=== PATIENT | male | born 1940 | race Caucasian/White ===

== ENCOUNTER 2016-09-11 19:08 | Inpatient (IN) ==
[2016-09-11] MEDS ORDERED: Naloxone 0.4 MG/ML INJ IVP PRN (23:03)
[2016-09-11] MEDS ORDERED: *HR* Heparin 5,000 UNIT/ML VIAL IVP PRN ×3 (23:06→23:41)
[2016-09-11] MEDS ORDERED: D5% in Water 1,000 ML IVC PRN (23:13)
[2016-09-11] MEDS ORDERED: Dextrose Gel 15 GM PO PRN ×2 (23:13)
[2016-09-11] MEDS ORDERED: *HR* Dextrose 50 % in Water (Syg) 50 ML SYRINGE IVP PRN (23:13)
[2016-09-11] MEDS ORDERED: Heparin 25,000 UNIT/500 ML D5W 25,000 UNIT/500 ML MLS IVC SCH (23:15)
[2016-09-11] MEDS ORDERED: Nitroglycerin 25 MG/250 ML INFUS..BTL IVC SCH (23:15)
--- NOTE | 2016-09-11 23:20 | Internal Med History&Physical ---
Date of Encounter: 09/11/16 Time of Encounter: 23:18 Assessment and Plan (1) NSTEMI (non-ST elevated myocardial infarction) Current visit: Yes Status: Acute Patient with history of coronary artery disease. Will treat with heparin infusion and nitroglycerin infusion. Cardiology consultation for further management. (2) Diabetes mellitus Current visit: Yes Status: Chronic Hold metformin. Start sliding scale insulin. Qualifiers: Diabetes mellitus type: type 2 Diabetes mellitus complication status: with unspecified complications Diabetes mellitus intermodal customer service insulin use: without intermodal customer service use Qualified Code(s): E11.8 - Type 2 diabetes mellitus with unspecified complications (3) Accelerated hypertension Current visit: Yes Status: Acute Patient apparently missed his night time last night. Patient is on nitroglycerin infusion for chest pain and the BP is improving. (4) Hyperlipemia Current visit: Yes Status: Chronic check lipid panel. Continue statin. Qualifiers: Hyperlipidemia type: unspecified Qualified Code(s): E78.5 - Hyperlipidemia , unspecified Internal Medicine - H&P: HPI Chief complaint: Left Chest discomfort Admitted From: Hospital to Hospital Transfer Plans for Post Hospital Care: Home History of present illness: Transfer from [facility]. Mr. Chung is a 76 year old male With h/o coronary artery disease - status post stent placement in 2003, type 2 diabetes mellitus, hypertension, obstructive sleep apnea on CPAP, bilateral carotid artery stenosis (50-69%), adenomatous polyps of the colon, hyperlipidemia. He presented to the urgent care center at [facility], [place], with h/o left sided chest discomfort / pain (5/ 10, non radiating, not related to significant exertion) started this morning. He measured his blood pressure control, which was elevated at that time. He took nitroglycerin at home with improvement of blood pressure and the pain. He was evaluated at urgent care and was given further nitroglycerin. His initial troponin was negative but subsequent troponin was 0.76. He was started on nitroglycerin infusion and heparin infusion and sent to the [facility] for further management (details were discussed / transfer agreed by manager respiratory care Dr Calvin). At my evaluation, patient reports the chest pain is close to 0. He denies palpitations, shortness of breath, nausea, vomiting, sweating, abdominal pain, dysuria or hematuria. Labs at [facility]: Peak troponin 0.276, peak CK 96, sodium 137, potassium 4, glucose 155, BNP 20, creatinine 1.1, calcium 9.2, AST 57, ALP 62, total bilirubin 0.8, WBC 12.2, hemoglobin 14, hematocrit 40, platelets 261. Chest x-ray reported no acute abnormality. EKG personally reviewed by me shows sinus rhythm, heart rate 58, RBBB. Past Med Surg Social Fam HX - Past Medical History Medical history: coronary artery disease, diabetes - Social History Smoking Status: Former smoker Alcohol use: rarely Drug use: none - Additional Family History Additional family history: Denies family h/o CAD and diabetes Internal Medicine - H&P: Meds Aspirin Enteric Coated [Aspirin EC] 81 mg PO HS 09/11/16 [History] Atorvastatin Calcium 40 mg PO HS 09/11/16 [History] Bisacodyl [Woman's Laxative] 5 mg PO BID 09/11/16 [History] Carvedilol [Coreg] 6.25 mg PO BID 09/11/16 [History] Chlorthalidone 12.5 mg PO DAILY 09/11/16 [History] Cholecalciferol (Vitamin D3) [Vitamin D3] 400 unit PO BID 09/11/16 [History] Cyanocobalamin (Vitamin B-12) [Vitamin B12] 1,000 mcg PO DAILY 09/11/16 [History ] Flaxseed/Omega3,6,9/Fatty Acid [Flax Seed Oil 1,300 mg Softgel] 1 tab PO DAILY 09/11/16 [History] GlipiZIDE [Glipizide ER] 10 mg PO HS 09/11/16 [History] Isosorbide MONOnitrate (24 HR) [Imdur] 45 mg PO HS 09/11/16 [History] Losartan [Cozaar] 100 mg PO HS 09/11/16 [History] Metformin HCl [Glucophage] 1,000 mg PO BID 09/11/16 [History] Multivit-Min/FA/Lycopen/Lutein [Adults 50+ Multivitamin Tablet] 1 tab PO DAILY 09/11/16 [History] NIFEdipine [Adalat cc] 120 mg PO HS 09/11/16 [History] Nitroglycerin [Nitrostat] 0.4 mg SL Q5M PRN 09/11/16 [History] Allergies No Known Allergies Allergy (Verified 09/11/16 21:08) All Systems PM: A 10-system review of systems was performed and is negative for pertinent findings except as documented above in the HPI. - Constitutional Exam: General: Not in acute distress at the time of my evaluation HEENT: Oral mucosa is moist. No conjunctival palor or scleral icterus Neck: No obvious neck swellings Lungs: Clear to auscultation Cardiac: Regular rate and rhythm. No significant murmurs Abdomen: Soft, non tender. Bowel sounds present Genitourinary: No barrett catheter Neurological: Alert and oriented. No gross localizing deficits Psych: Not agrressive or agitated Extremities: no significant leg edema Skin: Mild leg swelling Internal Med - H&P Results - Labs Labs: Labs at [facility]: Peak troponin 0.276, peak CK 906, sodium 137, potassium 4, glucose 155, BNP 20, creatinine 1.1, calcium 9.2, AST 37, ALP 62, total bilirubin 0.8, WBC 12.2, hemoglobin 14, hematocrit 40, platelets 261. - EKG Data -: EKG Interpreted by Myself EKG shows normal: sinus rhythm Rate: bradycardia - EKG Data EKG comments: EKG personally reviewed by me shows sinus rhythm, heart rate 58, RBBB. 09/12/16 04:21 - Impressions Chest x-ray reported no acute abnormality. - VTE Reasons for not Prescribing Prophylaxis: Not indicated-Anticoagulated or INR therapeutic
[2016-09-12 00:57] LABS: INR 1.3; Prothrombin Time 13.6 Seconds (9.4-12.1)
[2016-09-12 01:12] LABS: Activated Partial Thrombo Time 109.8 Seconds (26.0-36.0)
[2016-09-12 05:27] LABS: Hemoglobin 13.2 g/dL (12.9-16.9); Mean Corpuscular HGB Conc 34.7 g/dL (31.6-35.5); Mean Corpuscular Volume 89.2 fL (83.0-100.0); Mean Platelet Volume 9.9 fL (9.4-12.4); Platelet Count 253 K/mcL (140-400); Red Blood Count 4.26 M/mcL (4.19-5.50); Red Cell Distribution Width 12.6 % (11.5-14.5)
[2016-09-12 05:28] LABS: BUN/Creatinine Ratio 20 (6-26); Blood Urea Nitrogen 17 mg/dL (8-26); Calcium 9.6 mg/dL (8.6-10.8); Carbon Dioxide 24 mEq/L (19-29); Chloride 104 mEq/L (98-109); Chol/HDL Ratio 3.1 (0-4.9); Cholesterol 110 mg/dL (< 200); Glucose 125 mg/dL (70-99); HDL Cholesterol 36 mg/dL (40-59); LDL Cholesterol,Calculated 59 mg/dL (0-99); Magnesium 1.5 mg/dL (1.6-2.6); Osmolality,Calculated 289 (280-300); Potassium 3.4 mEq/L (3.5-4.5); Sodium 138 mEq/L (136-145); Triglycerides 77 mg/dL (< 150); eGFR For African Americans > 60 (> 60); eGFR For Non-African Americans > 60 (> 60)
[2016-09-12] MEDS ORDERED: *HR* Morphine 2 MG/ML SYRINGE IVP ONE (05:55)
[2016-09-12] MEDS ORDERED: Nitroglycerin 25 MG/250 ML INFUS..BTL IVC SCH (05:56)
[2016-09-12] MEDS ORDERED: Nitroglycerin 0.4 MG TAB.SUBL SL PRN (05:57)
--- NOTE | 2016-09-12 08:26 | Electrocardiograph Report ---
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
--- NOTE | 2016-09-12 08:27 | Electrocardiograph Report ---
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
[2016-09-12] MEDS ORDERED: Magnesium Sulfate 2 GM in D5% in Water 100 ML IVPB ONE (08:58)
--- NOTE | 2016-09-12 09:02 | Internal Med Progress Note ---
<Bacilio Carmona - Last Filed: 09/12/16 10:11> Date of Encounter: 09/12/16 Time of Encounter: 09:02 - Assessment and plan (1) NSTEMI (non-ST elevated myocardial infarction) Current Visit: Yes Status: Acute Assessment and plan: According to patient, last time he had left heart cath with AMANDA 1 placement was 15 years ago, cardiology was consulted, continue heparin IV drip, aspirin, Coreg, statin, ARB, patient is currently on nitro drip for chest pain, echo has been ordered by cardiology, will follow their recommendations. (2) Hypomagnesemia Current Visit: Yes Status: Acute Assessment and plan: It has been replaced with IV magnesium, recheck in the morning. (3) Hypokalemia Current Visit: Yes Status: Acute Assessment and plan: Will replace it today and recheck in the morning. (4) Hypertension Current Visit: Yes Status: Acute Assessment and plan: Continue losartan and Coreg. Qualifiers: Qualified Code(s): I10 - Essential (primary) hypertension (5) Diabetes mellitus Current Visit: Yes Status: Chronic Assessment and plan: Continue sliding scale insulin with Accu-Cheks every 6 hours while patient is nothing by mouth. Check hemoglobin A1c in the morning. Qualifiers: Diabetes mellitus type: type 2 Diabetes mellitus complication status: with unspecified complications Diabetes mellitus extermination supervisor insulin use: without extermination supervisor use Qualified Code(s): E11.8 - Type 2 diabetes mellitus with unspecified complications (6) DVT prophylaxis Current Visit: Yes Status: Acute Assessment and plan: Heparin IV drip. - Subjective Interval history: Patient seen and examined. He states that last night patient had a chest pain 5 out of 10 but this morning is 2 out of 10, no shortness of breath or palpitation. - Constitutional Vitals: Temp Pulse Resp BP Pulse Ox 98.8 F 59 20 151/87 94 09/12/16 07:06 09/12/16 07:06 09/12/16 07:06 09/12/16 07:06 09/12/16 07:06 General appearance: Present: cooperative, A&O X 3, pleasant, no acute distress, answers questions appropriately - Respiratory Respiratory exam: Present: CTAB. Absent: rales, rhonchi, wheezes - Cardiovascular Cardiovascular exam: Present: RRR, +S1, +S2. Absent: clicks, gallop, rubs, systolic murmur - GI/Abdominal GI/Abdominal exam: Present: normal bowel sounds, soft. Absent: distended, firm , guarding, rebound, rigid, tenderness - Extremities Exam Extremities exam: Present: normal inspection, warm, radial pulses palpable and symetrical. Absent: calf tenderness, pedal edema, tenderness Internal Medicine: Result - Labs CBC & Chem 7: 09/12/16 04:53 09/12/16 04:53 Labs: Short CBC 09/12/16 Range/Units 04:53 WBC 7.6 (4.3-11.1) K/mcL Hgb 13.2 (12.9-16.9) g/dL Hct 38.0 (37.5-50.1) % Plt Count 253 (140-400) K/mcL BMP 09/12/16 04:53 Sodium 138 Potassium 3.4 L Chloride 104 Carbon Dioxide 24 BUN 17 Creatinine 0.84 Glucose 125 H Calcium 9.6 Cardiac Enzymes 09/12/16 09/12/16 Range/Units 00:00 04:53 Troponin I 0.90 H* 0.99 H* (0-0.03) ng/mL - ABG Interpretation ABG results: PT/INR, D-dimer PT 13.6 Seconds (9.4-12.1) H 09/12/16 00:00 - VTE Reasons for not Prescribing Prophylaxis: Not indicated-Anticoagulated or INR therapeutic Consult Discharge Plan - Plan [facility]errals[facility] Care Provider[facility] - <Ady Gauthier - Last Filed: 09/12/16 14:05> Date of Encounter: 09/12/16 - Assessment and plan (1) NSTEMI (non-ST elevated myocardial infarction) Current Visit: Yes Status: Acute (2) Hypomagnesemia Current Visit: Yes Status: Acute (3) Hypokalemia Current Visit: Yes Status: Acute (4) Hypertension Current Visit: Yes Status: Chronic Qualifiers: Hypertension type: essential hypertension Qualified Code(s): I10 - Essential (primary) hypertension (5) Diabetes mellitus Current Visit: Yes Status: Chronic Qualifiers: Diabetes mellitus type: type 2 Diabetes mellitus complication status: with circulatory complication Diabetes mellitus complication detail: with other circulatory complications Diabetes mellitus correction insulin use: without extermination supervisor use Qualified Code(s): E11.59 - Type 2 diabetes mellitus with other circulatory complications (6) CAD (coronary artery disease) Current Visit: Yes Status: Chronic Qualifiers: Coronary Disease-Associated Artery/Lesion type: [place] artery [place] vs. transplanted heart: [place] heart Associated angina: with unstable angina Qualified Code(s): I25.110 - Atherosclerotic heart disease of [place] coronary artery with unstable angina pectoris - Constitutional Vitals: Temp Pulse Resp BP Pulse Ox 99.5 F 59 17 133/67 94 09/12/16 12:01 09/12/16 12:01 09/12/16 12:01 09/12/16 12:01 09/12/16 07:06 Internal Medicine: Result - Labs CBC & Chem 7: 09/12/16 04:53 09/12/16 04:53 Labs: Short CBC 09/12/16 Range/Units 04:53 WBC 7.6 (4.3-11.1) K/mcL Hgb 13.2 (12.9-16.9) g/dL Hct 38.0 (37.5-50.1) % Plt Count 253 (140-400) K/mcL BMP 09/12/16 04:53 Sodium 138 Potassium 3.4 L Chloride 104 Carbon Dioxide 24 BUN 17 Creatinine 0.84 Glucose 125 H Calcium 9.6 Cardiac Enzymes 09/12/16 09/12/16 Range/Units 00:00 04:53 Troponin I 0.90 H* 0.99 H* (0-0.03) ng/mL - ABG Interpretation ABG results: PT/INR, D-dimer PT 13.6 Seconds (9.4-12.1) H 09/12/16 00:00 - Attending Attestation I examined this patient and my medical decision-making was reviewed with the Resident Physician on 09/12/16. I agree with the documented findings, disposition and treatment plan as described except to the extent set forth below. Mr. Chung is currently admitted for acute NSTEMI. He is moderate to high risk due to potential for worsening cardiac status. Mr. Chung is still on nitro drip. He has no dyspnea or nausea. Plan for cardiac cath today. Exam Alert. Comfortable Heart reg No wheeze I/P 1. NSTEMI Cardiac cath today Further diagnoses and plan as above.
[2016-09-12] MEDS: Cyanocobalamin (B-12) 1,000 MCG TABLET PO SCH (09:08)
[2016-09-12] MEDS: Cholecalciferol (D-3) 1,000 UNIT TABLET PO SCH (09:08)
[2016-09-12] MEDS: Multivit/Ca/Min/Fe/FA 1 TAB TABLET PO SCH (09:08)
[2016-09-12] MEDS: Insulin LISPRO 300 UNITS/3 ML VIAL SQ SCH ×3 (09:09→17:06)
--- NOTE | 2016-09-12 09:35 | Cardiology Consult Note ---
Date of Encounter: 09/12/16 Time of Encounter: 09:30 Assessment and Plan (1) NSTEMI (non-ST elevated myocardial infarction) Current Visit: Yes Status: Acute Per Cardiology: Peak troponin 0.99. Currently on aspirin, statin, beta rae, ARB, heparin drip, and nitro drip. Currently chest pain-free. Chest pain relieved with nitro drip and IV morphine. Will check echocardiogram and proceed with left heart catheterization. Patient and family agreeable and all questions answered. Further recs after catheterization and echo. Discussed and reviewed with Dr. Benitez Durán. CR rehab C/s placed. (2) CAD (coronary artery disease) Current Visit: Yes Status: Acute Per Cardiology: History of CAD with drug-eluting stent to circumflex at [place] in 2003. Qualifiers: Coronary Disease-Associated Artery/Lesion type: [place] artery [place] vs. transplanted heart: [place] heart Associated angina: with unstable angina Qualified Code(s): I25.110 - Atherosclerotic heart disease of [place] coronary artery with unstable angina pectoris (3) Accelerated hypertension Current Visit: Yes Status: Acute Per Cardiology: SBP 170's upon arrival, better controlled currently. Discussion w patient/family: The assessment and plan as outlined above was discussed with the patient and/or family members who expressed understanding and agreement. All questions were answered. Thank you for involving us in the care of your patient. Please call with any questions. History of Present Illness Consult date: 09/12/16 Requesting physician: Nando Ramirez Consult reason: NSTEMI Chief complaint: CP History of present illness: Mr. Chung is a 76 year old male with relevant past history of CAD-- stenting in 2003, diabetes mellitus type 2, hypertension, PAD with carotid artery disease. Last seen by Dr. Calvin June 2016. Cardiology consult for non-STEMI. Patient reports his normal state of health until Saturday. Reports developed midsternal chest burning and heaviness relieved with rest. He reports he took his first ever nitroglycerin pill with relief as well. Reports symptoms were intermittent throughout the day. Indicates symptoms returned and [facility] He indicates initial troponins were negative and plans were for a stress test. Patient does report increased fatigue the past week. Prior to this week very active and walks 2 miles per day with no chest pain, however does indicate some mild chest discomfort with climbing hills steps unchanged from baseline over the past few years. Reports had recurrent chest burning and pressure this morning finally relieved with nitroglycerin drip and IV morphine. Currently chest pain free. Reports no recent catheterization since stenting in 2003. Denies any recent infectious process. Denies any active bleeding or blood loss. Past Med Surg Social Fam HX - Past Medical History Attestation: Yes The following information was validated with the patient. Source: patient, old records reviewed, obtained from family Medical history: coronary artery disease, diabetes - Social History Smoking Status: Former smoker Alcohol use: rarely Drug use: none Medications and Allergies Aspirin Enteric Coated [Aspirin EC] 81 mg PO HS 09/11/16 [History] Carvedilol [Coreg] 6.25 mg PO BID 09/11/16 [History] Chlorthalidone 12.5 mg PO DAILY 09/11/16 [History] Cholecalciferol (Vitamin D3) [Vitamin D3] 400 unit PO BID 09/11/16 [History] Cyanocobalamin (Vitamin B-12) [Vitamin B12] 1,000 mcg PO DAILY 09/11/16 [History ] Flaxseed/Omega3,6,9/Fatty Acid [Flax Seed Oil 1,300 mg Softgel] 1 tab PO DAILY 09/11/16 [History] Isosorbide MONOnitrate (24 HR) [Imdur] 45 mg PO HS 09/11/16 [History] Metformin HCl [Glucophage] 1,000 mg PO BID 09/11/16 [History] Multivit-Min/FA/Lycopen/Lutein [Adults 50+ Multivitamin Tablet] 1 tab PO BID [History] NIFEdipine [Adalat cc] 120 mg PO DAILY 09/11/16 [History] Nitroglycerin [Nitrostat] 0.4 mg SL Q5M PRN 09/11/16 [History] Atorvastatin [Lipitor] 40 mg PO DAILY 09/12/16 [History] Losartan Potassium [Cozaar] 100 mg PO DAILY 09/12/16 [History] Magnesium Oxide [Magnesium] 400 mg PO DAILY 09/12/16 [History] Propylene Glycol/Peg 400 [Systane 0.3-0.4% Eye Drops] 15 drop OP QID PRN [History] glipiZIDE [Glipizide] 10 mg PO HS 09/12/16 [History] Allergies No Known Allergies Allergy (Verified 09/11/16 21:08) All Systems Review: A 10-system review of systems was performed and is negative for pertinent findings except as documented above in the HPI. - Constitutional Constitutional: fatigue - Cardiovascular Cardiovascular: as per HPI, chest pain at rest Physical Examination Vital Signs, Last 4 Hours Temp Pulse Resp BP Pulse Ox 09/12/16 07:06 98.8 F 59 20 151/87 94 General: Conversant, No Apparent Distress HEENT: Atraumatic, Normocephaly, Mucus Membranes Moist Neck: No JVD, Normal carotid pulses Cardiac: Reg Rate and Rhythm, Normal S1 and S2, No Murmur Lungs: Normal Breath Sounds, No Wheeze, Rales, Rhonchi Neuro: Alert and responsive, No focal deficits noted Abdomen: Soft, Non-Tender Skin: No rashes noted on visualized skin Musculoskeletal: No Chest Wall Tenderness Extremities: No Clubbing, No Cyanosis, No Edema, Normal Pulses Results 09/12/16 04:53 09/12/16 04:53 Lab Results 09/12/16 09/12/16 09/12/16 00:00 00:00 04:53 WBC 7.6 Hgb 13.2 Hct 38.0 Plt Count 253 INR 1.3 APTT 109.8 H Sodium Potassium Chloride Carbon Dioxide BUN Creatinine Glucose Calcium Magnesium Troponin I 0.90 H* Selected Entries 09/12/16 00:49 Blood Pressure 173/73 Laboratory Tests 09/12/16 09/12/16 09/12/16 00:00 00:00 04:53 INR 1.3 Troponin I 0.90 H* LDL Cholesterol, Calc 59 09/12/16 04:53 INR Troponin I 0.99 H* LDL Cholesterol, Calc Active Medications Aspirin (Aspirin Ec) 81 mg PO HS RADHA Stop: 03/14/17 21:01 Carvedilol (Coreg) 6.25 mg PO BID RADHA PRN Reason: Protocol Stop: 03/14/17 09:01 Last Admin: 09/12/16 09:08 Dose: 6.25 mg Cyanocobalamin (Vitamin B12) 1,000 mcg PO DAILY RADHA Stop: 03/14/17 09:01 Last Admin: 09/12/16 09:08 Dose: 1,000 mcg Dextrose/Water (Dextrose 50% (Syg)) 25 ml IVP AD PRN PRN Reason: Hypoglycemia Stop: 03/13/17 23:14 Glucagon (Glucagen) 1 mg IM ONCE PRN PRN Reason: Hypoglycemia Stop: 03/13/17 23:14 Glucose (Gluctose) 15 gm PO ONCE PRN PRN Reason: Hypoglycemia Stop: 03/13/17 23:14 Glucose (Gluctose) 30 gm PO ONCE PRN PRN Reason: Hypoglycemia Stop: 03/13/17 23:14 Heparin Sodium (Porcine) (Heparin) 2,000 unit IVP Q6H PRN; Protocol PRN Reason: SEE COMMENTS Stop: 03/13/17 23:07 Last Admin: 09/12/16 09:16 Dose: 2,000 unit Heparin Sodium (Porcine) (Heparin) 4,000 unit IVP Q6HR PRN; Protocol PRN Reason: SEE COMMENTS Stop: 03/13/17 23:07 Dextrose (Dextrose 5%) 1,000 mls @ 100 mls/hr IVC .Q10H PRN PRN Reason: HYPOGLYCEMIA Stop: 03/13/17 23:14 Heparin Sodium/Dextrose (Heparin 25,000 Unit/500 Ml D5w) 25,000 unit in 500 mls @ 22.08 mls/hr IVC .[id number] RADHA; 12 UNIT/KG/HR PRN Reason: Protocol Stop: 03/13/17 23:16 Last Titration: 09/12/16 09:14 Dose: 11.95 unit/kg/hr, 22 mls/hr Nitroglycerin (Nitroglycerin) 25 mg in 250 mls @ 3 mls/hr IVC .Q24H RADHA; 5 MCG/ MIN PRN Reason: Protocol Stop: 03/13/17 23:16 Last Admin: 09/12/16 06:06 Dose: 20 mcg/min, 12 mls/hr Magnesium Sulfate 2 gm/ (Dextrose) 104 mls @ 100 mls/hr IVPB ONCE ONE Stop: 09/12/16 10:00 Insulin Human Lispro (Humalog) 0 units SQ TIDAC RADHA PRN Reason: Protocol Stop: 03/14/17 07:31 Last Admin: 09/12/16 09:09 Dose: Not Given Insulin Human Lispro (Humalog) 0 units SQ HS RADHA PRN Reason: Protocol Stop: 03/14/17 21:01 Losartan Potassium (Cozaar) 100 mg PO HS RADHA PRN Reason: Protocol Stop: 03/14/17 21:01 Multivitamins/Calcium (Thera M Plus) 1 tab PO DAILY RADHA Stop: 03/14/17 09:01 Last Admin: 09/12/16 09:08 Dose: 1 tab Naloxone HCl (Narcan) 0.4 mg IVP Q2MIN PRN PRN Reason: Opioid Reversal Stop: 03/13/17 23:04 Nitroglycerin (Nitroglycerin) 0.4 mg SL Q5M PRN PRN Reason: Chest Pain Stop: 03/14/17 05:58 Simvastatin (Zocor) 40 mg PO HS RADHA Stop: 03/14/17 21:01 Vitamin D (Vitamin D) 1,000 unit PO DAILY RADHA Stop: 03/14/17 09:01 Last Admin: 09/12/16 09:08 Dose: 1,000 unit - Imaging and Cardiology Echo: pending Cardiac cath: pending - EKG Interpretation EKG results cardiology: personally reviewed, normal ECG, sinus rhythm, no diagnostic ischemia Consult Discharge Plan - Plan [facility]errals: [facility]Primary Care Provider] -
--- NOTE | 2016-09-12 11:44 | Pre-Sedation Evaluation ---
Pre-sedation evaluation - Pre-sedation checklist Date of procedure: 09/12/16 Procedure: left heart cath Recent Vitals: Last Vital Signs Temp 98.8 F 09/12/16 07:06 Pulse 59 09/12/16 07:06 Resp 20 09/12/16 07:06 BP 151/87 09/12/16 07:06 Pulse Ox 94 09/12/16 07:06 H&P (including ROS) documented in medical record: Yes Previous reaction to sedatives/anesthetics: No Dietary Status: NPO after Midnight Dentition: No loose teeth or bridges ASA Classification *see protocol: CLASS II-Mild systemic disease Plan of Care: Pt appropriate candidate for procedure/moderate/conscious sedation , Risks/benefits of procedure/sedation discussed w/ patient/family
[2016-09-12] MEDS ORDERED: *HR* Midazolam HCl 5 MG/5 ML VIAL IVP ONE (12:43)
[2016-09-12] MEDS ORDERED: *HR* FentaNYL (PF) 100 MCG/2 ML VIAL ONE (12:43)
[2016-09-12] MEDS ORDERED: 0.9 % Sodium Chloride 1,000 ML ONE ×2 (12:43→13:58)
--- NOTE | 2016-09-12 13:55 | Invasive Diagnostic Lab Proc ---
Name: Yfn Chung Date of Study: 09/12/2016 Date: 1940 Ht: 66.9in Medical Record#: [id number] Age: 76 Wt: 205.47lb Gender: Male BSA: 2.04 Order #: [id number] BMI: 32.29 Physicians Procedure Physician: Raheem Bhatti MD, [facility] Referring MD: Referring MD: Staff Name Position Time In Samantha Koo RT (R) Scrub 12:55 PM CarringtonMagdalena RT (R) Monitor 12:55 PM Mira Hoyos RN Scrub 12:55 PM Silke Vasques RN Budder 12:55 PM Indications Indication Non-Stemi Procedures Performed Procedure L HRT ARTERY/VENTRICLE ANGIO PRQ CARD AMANDA STENT W/ANGIO 1 VSL Pre-Procedure Checklist Informed consent is complete signed and on chart. H\\T\\P is on chart. ID band is on and ID verified with patient. Patient NPO for procedure The procedure was described for the patient and questions were answered. Blood Pressure: 151/87 ECG is on chart. Rhythm: NSR Plan of Care Patient will tolerate the procedure without complications. Adequate level of comfort will be maintained. Hemodynamics will remain stable Patient will recover from procedure without complications. Respiratory function will be maintained. Cardiac rhythm will remain stable. Patient temperature will be maintained. Patient and/or family have verbalized understanding of the procedure. Patient Education Chief Complaint/Reason for Test: Cardiac Cath Developmental Category: Geriatric (65+ years) Developmentally Appropriate for Age: Yes Learning Barriers: None Education Needs: Procedure Education Method: Verbal Information Taught: Cardiac Cath Educational Evaluation: Able to repeat information Intravenous Access Time IV Size Location DC'd Fluid/Drip Rate Units RN 20g 1 1/4" Patent On Arrival Lt Antecubital 0.9NaCl 25 ml/hr Mira Hoyos RN 20g 1 1/4" Patent On Arrival Rt Hand Allergies No Known Allergies Vital Signs Time BP (mmHg) HR (bpm) O2 Sat. RR (bpm) LOC 151 / 87 59 94 % 20 5 = Fully awake and oriented or at pre-proc level 12:55 PM / % 5 = Fully awake and oriented or at pre-proc level 12:55 PM / % 4 = Oriented but drowsy 01:10 PM / % 4 = Oriented but drowsy 01:25 PM / % 4 = Oriented but drowsy 01:15 PM 152 / 81 67 99 % 01:21 PM 168 / 82 62 100 % 13 01:27 PM 197 / 86 55 100 % 11 01:30 PM 180 / 94 57 100 % 15 01:36 PM 201 / 93 66 100 % 12 01:40 PM 188 / 93 62 99 % 12 12:50 PM 79 / 45 65 99 % 17 12:56 PM 225 / 101 63 99 % 01:00 PM 157 / 132 69 100 % 22 01:05 PM 162 / 80 61 96 % 16 01:10 PM 160 / 78 66 100 % 17 Procedural Medications Time Medication Dose Units Method Given By 12:55 PM Oxygen 2 L/min nasal cannula Mira Hoyos RN 12:56 PM Versed 2 mg Intravenous Silke Vasques RN 12:56 PM Fentanyl 50 mcg Intravenous Silke Vasques RN 01:08 PM Lidocaine 2% 0.5 ml Subcutaneous Raheem Bhatti MD, FAC 01:09 PM Heparin 4000 units Nitroglycerin 200 mcg Verapamil 2.5 mg Intraarterial Raheem Bhatti MD, FACC 01:35 PM Heparin 3000 units Intravenous Silke Vasques RN 01:36 PM Hydralazine 10 mg Intravenous Silke Vasques RN 01:38 PM Nitroglycerin 200 mcg Intracoronary Rhaeem Bhatti MD 01:42 PM Plavix 75 mg Orally Silke Vasques RN ASA Classification: CLASS II- Mild systemic disease (i.e. well-controlled diabetes, hypertension, asthma, cigarette smoking) Manuel Score Preprocedure Postprocedure Activity 2- Moves 4 extremities sustained head lift Activity 2- Moves 4 extremities sustained head lift Circulation 2- SBP +/= 20 points of pre-anesthetic level Circulation 2- SBP +/= 20 points of pre-anesthetic level Consciousness 2- Awake and alert oriented x 3 Consciousness 2- Awake and alert oriented x 3 O2 Saturation 2- Able to maintain O2 satruation of 92% on room air O2 Saturation 2- Able to maintain O2 satruation of 92% on room air Respiratory 2- Able to deep breathe and cough well Respiratory 2- Able to deep breathe and cough well Total Score 10 Total Score 10 Contrast Agent: Isovue Diagnostic Contrast: 173 ml Total Contrast: 173 ml Fluoro Dose: 776 mGy Activated Clotting Time Time Seconds to Clot 01:32 PM 400 01:35 PM 214 Procedure Log Time Note Enter By 12:31 PM Pt arrived to chemical lab technician 2 at 12:31 ejohnson 12:47 PM CathStat 12:50 PM Vitals capture started with the following parameters, Patient=Adult, Interval=5 min, Initial Pgyjyaaf=567 mmHg, Deflation Rate=5 mmHg, Cuff placed on Right Arm 12:50 PM Pressure channel 1 zeroed. 12:50 PM HR=65 bpm, NIBP=79/45 mmhg, SpO2=99 %, Resp=17 B/min 12:52 PM Physician arrived 12:52 ejohnson 12:52 PM Meet and greet completed ejohnson 12:52 PM Sign in performed according to hospital policy. ejohnson 12:52 PM Procedure start 12:52 ejohnson 12:52 PM Case Delayed No ejohnson 12:52 PM Patient charges- Angio tray pack, Navilyst 3mm J, Pulse Oximetry and ACIST tubing and transducer ejohnson 12:54 PM Recorded ECG: HR=64 Condition=Condition 1 12:54 PM NIBP STAT measurement started. 12:54 PM Hair removed from procedure site in procedure lab using clippers. Bilateral groin prepped with Chloraprep by Samantha Koo RT (R), safety strap applied then patient was draped. Skin intact. tsites 12:55 PM Samantha Koo RT (R) Position: Scrub Time in: 12:55 tsites 12:55 PM Magdalena Shultz RT (R) Position: Monitor Time in: 12:55 tsites 12:55 PM Mira Hoyos RN Position: scrub Time in: 12:55 tsites 12:55 PM Silke Vasques RN Position: sheep farmer Time in: 12:55 tsites 12:55 PM Time: 12:55 Oxygen on at 2 L/min per nasal cannula by Mira Hoyos RN tsites 12:55 PM Time: 12:55 Patient comfortable and pain free: Yes tsites 12:55 PM Time: 12:55LOC: 5 = Fully awake and oriented or at pre-proc level tsites 12:55 PM Clinical Presentation: Non-STEMI tsites 12:56 PM HR=63 bpm, DIIB=519/101 mmhg, SpO2=99.0 % 12:56 PM Time: 12:56 Versed 2 mg Intravenous Given by Silke Vasques RN tsites 12:57 PM Time: 12:56 Fentanyl 50 mcg Intravenous Given by Silke Vasques RN tsites 01:00 PM HR=69 bpm, LBAE=058/132 mmhg, NgX7=736.0 %, Resp=22 B/min, Comment=nsr 01:05 PM HR=61 bpm, QZEH=207/80 mmhg, SpO2=96 %, Resp=16 B/min 01:08 PM Time out performed according to hospital policy tsites 01:08 PM Time: 13:08 0.5 ml Lidocaine 2% to right radial Subcutaneous Given by Raheem Bhatti MD, [facility] tsites 01:09 PM Access obtained by percutaneous puncture. 6Fr 10cm Terumo Glidesheath sheath placed in right Radial artery. [id number] tsites 01:09 PM Time: 13:09 Patient given 4,000 units Heparin, 200 mcg Nitroglycerin, and 2.5 mg Verapamil Intraarterial by Raheem Bhatti MD, [facility] tsites 01:10 PM Time: 12:55 Patient comfortable and pain free: Yes tsites 01:10 PM HR=66 bpm, GJZR=603/78 mmhg, NjX0=673.0 %, Resp=17 B/min 01:10 PM Time: 12:55LOC: 4 = Oriented but drowsy tsites 01:11 PM 5Fr TIG catheter inserted over the wire [facility] tsites 01:11 PM 0.035 260cm Navilyst 3mmJ wire [id number] tsites 01:11 PM Pressure channel 1 zeroed. 01:11 PM Recorded Pressure: LV, HR=61, Condition=Condition 1 (Left Ventricle) LV 125/12/12 01:12 PM Catheter selectively placed in left ventricle tsites 01:12 PM Bolus angiogram of left Ventricle complete: 10 ml/sec for a total of 30 mls tsites 01:12 PM Recorded Pressure: LV, Ao, HR=68, Condition=Condition 1 (Left Ventricle) LV 145/8/14, (Aorta) Ao 127/71/94 01:12 PM Recorded Pressure: Ao, HR=62, Condition=Condition 1 (Aorta) Ao 134/84/108 01:12 PM RCA angiography performed in multiple views. tsites 01:13 PM wire reinserted catheter removed tsites 01:14 PM 5Fr FL3.5 catheter inserted over the wire [id number] tsites 01:15 PM LCA angiography performed in multiple views. tsites 01:15 PM Recorded Pressure: Ao, HR=67, Condition=Condition 1 (Aorta) Ao 128/68/94 01:15 PM HR=67 bpm, KVHM=131/81 mmhg, SpO2=99.0 % 01:18 PM Coronary Dominance: right tsites 01:19 PM Lesion found in Mid RCA. Pre Stenosis: 60 Pre VIBHA Flow: tsites 01:19 PM Lesion found in 1st RPLV. Pre Stenosis: 90 Pre VIBHA Flow: tsites 01:20 PM Lesion found in Right PDA. Pre Stenosis: 60 Pre VIBHA Flow: tsites 01:20 PM Lesion found in LMCA. Pre Stenosis: 30 Pre VIBHA Flow: tsites 01:20 PM Lesion found in Mid LAD. Pre Stenosis: 50 Pre VIBHA Flow: tsites 01:20 PM Left Main Coronary Artery with 40% stenosis tsites 01:20 PM Mid/Distal Left Anterior Descending Coronary Artery and diagonal branches with 50% stenosis. If graft is supplying this area, 0 % stenosis tsites 01:21 PM Right Coronary, Right Posterior Descending Arteries with Right Posterolateral and Acute Marginal branches with 90 % stenosis. If graft is supplying this area, 0 % stenosis tsites 01:21 PM wire reinserted catheter removed tsites 01:21 PM PCI Status Urgent tsites 01:21 PM HR=62 bpm, KROM=394/82 mmhg, WwC5=681.0 %, Resp=13 B/min, Comment=nsr 01:22 PM Lesion found in Proximal LAD. Pre Stenosis: 80 Pre VIBHA Flow: tsites 01:23 PM PCI Indication: PCI for high risk Non-STEMI or unstable angina tsites 01:23 PM PCI lesion in Mid LAD. tsites 01:23 PM 6Fr RBL 3.5 Convey guide catheter was used to cannulate the PCI vessel successfully. reused? No tsites :24 PM .014 [place] 190cm guide wire across target lesion- successful. reused? No tsites :25 PM Time: 13:10 Patient comfortable and pain free: Yes tsites :25 PM Time: 13:10LOC: 4 = Oriented but drowsy tsites 01:27 PM ACT drawn tsites 01:27 PM Inflation device was opened. tsites 01:27 PM HR=55 bpm, YDEE=205/86 mmhg, JfQ2=371.0 %, Resp=11 B/min 01:30 PM 2.5 mm x 15 mm Emerge Monorail balloon across target lesion- successful. reused? No tsites 01:30 PM Balloon inflated @ 10 shlomo for 17 seconds tsites 01:30 PM HR=57 bpm, NPRA=939/94 mmhg, XeY0=243.0 %, Resp=15 B/min 01:32 PM Balloon catheter removed intact. tsites 01:32 PM At 13:32 the ACT was 400 seconds. tsites 01:32 PM 2.75mm x 16mm Synergy drug-eluting stent across target lesion- successful Lot #[id number] tsites 01:32 PM ACT drawn tsites 01:35 PM Stent deployed @ 12 shlomo for 38 seconds tsites 01:35 PM At 13:35 the ACT was 214 seconds. tsites 01:35 PM Time: 13:35 Heparin 3000 units Intravenous Given by Silke Vasques RN tsites 01:36 PM HR=66 bpm, XMXF=501/93 mmhg, SlK4=077.0 %, Resp=12 B/min 01:36 PM Time: 13:36 Hydralazine 10 mg Intravenous Given by Silke Vasques RN tsites 01:38 PM 2.75 mm x 12mm NC Emerge balloon across target lesion- successful. reused? No tsites 01:38 PM Balloon inflated @ 12 shlomo for seconds tsites 01:38 PM Time: 13:38 Nitroglycerin 200 mcg Intracoronary Given by Raheem Bhatti MD tsites 01:40 PM Proximal Left Anterior Descending Coronary Artery with 80% stenosis. If graft is supplying this territory, 0 % stenosis. tsites 01:40 PM HR=62 bpm, ARTD=567/93 mmhg, SpO2=99 %, Resp=12 B/min 01:40 PM Time: 13:25LOC: 4 = Oriented but drowsy tsites 01:40 PM Time: 13:25 Patient comfortable and pain free: Yes tsites 01:41 PM Balloon catheter removed intact. tsites 01:41 PM Guide wire removed intact. tsites 01:41 PM Guide catheter removed intact. tsites 01:42 PM Time: 13:42 Plavix 75 mg Orally Given by Silke Vasques RN tsites 01:43 PM Procedure completed at 13:43 tsites 01:43 PM Sign out completed: Radiation Dose 776 mGy Fluoro Time: 8.6 Isovue 370 - 500ml contrast 173 ml given by Raheem Bhatti MD, [facility]. Complications: NoneCardiac Rehab Consult needed: YesConfirmed administered medications: Yes tsites 01:43 PM Isovue 370 - 500ml,1 Bottle(s) used. tsites 01:43 PM Arterial sheath pulled, Vasc Band closure device used and was Successful S/N. tsites 01:43 PM 10 ml air in Vasc Band. tsites 01:43 PM Post ECG NSR tsites 01:44 PM Post Blood Pressure 188/93 tsites 01:44 PM 13:44 Post Pulses Rt Radial 2+ tsites 01:44 PM Information taught Cardiac Cath, PCI, and Vasc Band tsites 01:44 PM Education needs Procedure, Plan of Care, and Responsibilities of Patient in Care tsites 01:44 PM Learning barriers :None tsites 01:44 PM Education Methods Verbal tsites 01:44 PM Education evaluation Able to repeat information tsites 01:44 PM Site status No bleeding/hematoma - Rt Wrist as reported by Samantha Koo RT (R) at 13:44 tsites 01:45 PM Plavix, Effient or Brilinta given Yes tsites 01:45 PM Delay to floor No tsites 01:45 PM Patient out of room: 13:45 tsites 01:45 PM Family placed in consult room. tsites 01:49 PM Report given to jenny CORDERO Pt taken to E Room #19. 13:48 tsites Complications Complication None Hemodynamics Pressures Site Systolic/A Wave Diastolic/V Wave Mean LV 125 12 12 LV 145 8 14 AO 127 71 94 AO 134 84 108 AO 128 68 94 Post Procedure Information Blood Pressure: 188/93 mmHg Rhythm: NSR Post procedural instructions were given Closure Device Time Device Success/Fail 09/12/2016 1:45:00 PM Mechanical Compression Successful Site Checks Time Location Status Staff Sheath In? Note 01:44 PM Rt Wrist No bleeding/hematoma Samantha Koo RT (R) Pulses Time Site Pre-Procedure Post-Procedure Note Bilateral DP \\T\\ PT 2+ Bilateral radial 2+ 1:44:00 PM Rt Radial 2+ Updated by Magdalena Shultz RT (R) on 09/12/2016 1:49:13 PM Magdalena Shultz RT electronically signed on 09/12/2016 1:49:37 PM with status of Final
[2016-09-12] MEDS ORDERED: Verapamil 5 MG/2 ML VIAL ONE (13:57)
[2016-09-12] MEDS ORDERED: Heparin 1,000 UNITS/500 mL NS 500 ML ONE (13:58)
[2016-09-12] MEDS ORDERED: *HR* Heparin 10,000 UNIT/10 ML VIAL ONE (13:58)
[2016-09-12] MEDS ORDERED: Nitroglycerin 1,000 MCG/10 ML VIAL IV ONE (13:58)
--- NOTE | 2016-09-12 19:52 | Invasive Diagnostic Lab ---
Name: Yfn Chung Date of Study: 09/12/2016 Date: 1940 Ht: 169.9 cm /66.9 in Medical Record#: [id number] Age: 76 Wt: 93.2 kg / 205.47 lb Account/Order#: [id number] Gender: Male BSA: 2.04 Order #: [id number] Fluoro Dose: 776 mGy BMI: 32.29 Procedure Physician: Raheem Bhatti MD, [facility] Referring MD: Referring MD: Procedures Performed: LEFT HEART CATH Stent w/ PTCA Single Major Vessel Indications: Non-Stemi Impressions: There is severe one vessel coronary artery disease. The left ventricle is normal and has normal contractility EF 60% Patient had successful PTCA/Drug-Eluting Stent placement in the mid LAD. Residual small vessel disease Recommendations: Optimal medical therapy of patient's disease. Aggressive risk factor modification. Patient being referred for cardiac rehab. History/Risk Factors: sleep apnea Diabetes Hypertension Dyslipidemia Previous PCI Date: 05/02/2003 Procedure Access obtained in the right Radial artery by percutaneous puncture Patient had successful PTCA/Drug-Eluting Stent placement in the proximal LAD. Complications: None Contrast: Isovue 173ml Closure Device: Mechanical Compression Hemodynamics: Pressures Site Systolic/ A Wave Diastolic/ V Wave End Diastolic/ Mean HR LV 125 12 12 61 LV 145 8 14 69 AO 127 71 94 67 AO 134 84 108 62 AO 128 68 94 67 LV Ventriculography Ejection Method: LV Gram Ejection Fraction: 60% Wall Motion: SOL Anterobasal Normal Anterolateral Normal Apical: Normal Inferoapical Normal Inferobasal Normal Coronary Dominance: right Lesion Findings/Interventions * Left Main Coronary Artery There is a 30-40% stenosis in the LMCA. * Left Anterior Descending There is a 16 mm long, 80% stenosis in the mid LAD (just after diagonal/septal). The lesion has a VIBHA flow of 3 and has no thrombus present. An intervention was performed on the Proximal LAD with a final stenosis of 0%. There were no lesion complications. The final VIBHA flow was 3. There is a 50% stenosis in the mid LAD. There is minimal disease in the proximal LAD * Circumflex The Circumflex has a mid 50% stenosis The 1st Marginal is angiographically free of significant disease * Right Coronary Artery The RPLV is small in size with 80% stenosis. There is a 60% stenosis in the Mid RCA. There is a 60% stenosis in the Right PDA. Interventional Device(s) Vessel Segment Type Name Diameter (mm) Length (mm) Proximal LAD Balloon NC Emerge 2.75 12 Proximal LAD Balloon Emerge Monorail 2.5 15 Proximal LAD Drug Eluting Stent Synergy 2.75 16 Updated by Magdalena Shultz, RT (R) on 09/12/2016 1:48:26 PM Raheem Bhatti MD, FACC electronically signed on 09/12/2016 7:48:22 PM with status of Final
[2016-09-12] MEDS ORDERED: Aspirin Enteric Coated 81 MG Tablet PO SCH (21:00)
[2016-09-12] MEDS ORDERED: Insulin LISPRO 300 UNITS/3 ML VIAL SQ SCH (21:00)
[2016-09-13 06:15] LABS: Basophils % 0.4 %; Eosinophils # 0.2 K/mcL (0.0-0.6); Eosinophils % 2.7 %; Hematocrit 36.3 % (37.5-50.1); Hemoglobin 12.6 g/dL (12.9-16.9); Immature Granulocytes % 0.4 % (0-4); Lymphocytes # 1.4 K/mcL (0.6-4.6); Lymphocytes % 18.6 %; Mean Corpuscular HGB Conc 34.7 g/dL (31.6-35.5); Mean Corpuscular Hemoglobin 31.1 pg (28.0-33.3); Mean Corpuscular Volume 89.6 fL (83.0-100.0); Mean Platelet Volume 10.1 fL (9.4-12.4); Monocytes # 0.9 K/mcL (0.0-1.3); Monocytes % 12.4 %; Neutrophils # 4.8 K/mcL (1.6-8.9); Platelet Count 228 K/mcL (140-400); Red Blood Count 4.05 M/mcL (4.19-5.50); Red Cell Distribution Width 12.7 % (11.5-14.5); Segmented Neutrophils % 65.5 %
[2016-09-13 06:26] LABS: BUN/Creatinine Ratio 17 (6-26); Blood Urea Nitrogen 14 mg/dL (8-26); Calcium 9.1 mg/dL (8.6-10.8); Carbon Dioxide 26 mEq/L (19-29); Chloride 104 mEq/L (98-109); Glucose 143 mg/dL (70-99); Magnesium 1.5 mg/dL (1.6-2.6); Osmolality,Calculated 287 (280-300); Potassium 3.7 mEq/L (3.5-4.5); Sodium 137 mEq/L (136-145); eGFR For African Americans > 60 (> 60); eGFR For Non-African Americans > 60 (> 60)
[2016-09-13] MEDS: Cyanocobalamin (B-12) 1,000 MCG TABLET PO SCH (08:11)
[2016-09-13] MEDS: Cholecalciferol (D-3) 1,000 UNIT TABLET PO SCH (08:11)
[2016-09-13] MEDS: Insulin LISPRO 300 UNITS/3 ML VIAL SQ SCH (08:11)
[2016-09-13] MEDS: Multivit/Ca/Min/Fe/FA 1 TAB TABLET PO SCH (08:11)
--- NOTE | 2016-09-13 08:25 | Cardiology Progress Note ---
Date of Encounter: 09/13/16 Time of Encounter: 08:30 Assessment and Plan (1) NSTEMI (non-ST elevated myocardial infarction) Current Visit: Yes Status: Acute Per Cardiology: Peak troponin 0.99. On aspirin, statin-- will switch to atorvastain and increase to 80mg, beta rae, ARB. Received Plavix yesterday-- will start Plavix. Underwent left heart catheterization which showed left main 30-40%, mid LAD 80% status post PTCA with drug-eluting stent, LAD 50%, circumflex mid 50%, RPLV 80% (small size), mid RCA 60%, and right PDA 60%. Hold Metformin today and resume tomorrow. Currently chest pain-free. Rec provide Rx for SL NTG at [place]. Echo pending. We'll sign off, re-consult as needed, follow-up scheduled. All questions answered. (2) CAD (coronary artery disease) Current Visit: Yes Status: Chronic Per Cardiology: History of CAD with drug-eluting stent to circumflex at [place] in 2003. Qualifiers: Coronary Disease-Associated Artery/Lesion type: [place] artery [place] vs. transplanted heart: [place] heart Associated angina: without angina Qualified Code(s): I25.10 - Atherosclerotic heart disease of [place] coronary artery without angina pectoris (3) Accelerated hypertension Current Visit: Yes Status: Chronic Per Cardiology: SBP 170's upon arrival, better controlled currently. SBP 140's-150's. HR 50's - 60's. Will resume CCB. Discussion w patient/family: The assessment and plan as outlined above was discussed with the patient who expressed understanding and agreement. All questions were answered. Thank you for involving us in the care of your patient. Please call with any questions. Subjective Principal diagnosis: NSTEMI Interval history: Patient denies any chest pain, short of breath, palpitations. Denies any concerns regarding his right wrist site. Objective Vital Signs, Last 4 Hours Temp Pulse Resp BP Pulse Ox 09/13/16 08:09 62 09/13/16 06:59 97.5 F L 54 16 154/75 98 09/13/16 04:53 98.3 F 52 16 142/59 97 General: Conversant, No Apparent Distress HEENT: Atraumatic, Normocephaly, Mucus Membranes Moist Cardiac: Reg Rate and Rhythm, Normal S1 and S2, No Murmur Lungs: Normal Breath Sounds, No Wheeze, Rales, Rhonchi Neuro: Alert and responsive, No focal deficits noted Skin: No rashes noted on visualized skin, Other (Right wrist site dry and intact , no hematoma, no bleeding, right radial pulse 2+ palpable) Musculoskeletal: No Chest Wall Tenderness Extremities: No Clubbing, No Cyanosis, No Edema, Normal Pulses Results 09/13/16 05:00 09/13/16 05:00 Lab Results Laboratory Tests 09/13/16 09/13/16 05:00 05:00 Creatinine 0.84 Est GFR (Non-Af Amer) > 60 Hemoglobin A1c 6.0 H Magnesium 1.5 L Active Medications Aspirin (Aspirin Ec) 81 mg PO HS RADHA Stop: 03/14/17 21:01 Last Admin: 09/12/16 21:41 Dose: 81 mg Carvedilol (Coreg) 6.25 mg PO BID RADHA PRN Reason: Protocol Stop: 03/14/17 09:01 Last Admin: 09/13/16 08:11 Dose: 6.25 mg Cyanocobalamin (Vitamin B12) 1,000 mcg PO DAILY RADHA Stop: 03/14/17 09:01 Last Admin: 09/13/16 08:11 Dose: 1,000 mcg Dextrose/Water (Dextrose 50% (Syg)) 25 ml IVP AD PRN PRN Reason: Hypoglycemia Stop: 03/13/17 23:14 Glucagon (Glucagen) 1 mg IM ONCE PRN PRN Reason: Hypoglycemia Stop: 03/13/17 23:14 Glucose (Gluctose) 15 gm PO ONCE PRN PRN Reason: Hypoglycemia Stop: 03/13/17 23:14 Glucose (Gluctose) 30 gm PO ONCE PRN PRN Reason: Hypoglycemia Stop: 03/13/17 23:14 Heparin Sodium (Porcine) (Heparin) 2,000 unit IVP Q6H PRN; Protocol PRN Reason: SEE COMMENTS Stop: 03/13/17 23:07 Last Admin: 09/12/16 09:16 Dose: 2,000 unit Heparin Sodium (Porcine) (Heparin) 4,000 unit IVP Q6HR PRN; Protocol PRN Reason: SEE COMMENTS Stop: 03/13/17 23:07 Dextrose (Dextrose 5%) 1,000 mls @ 100 mls/hr IVC .Q10H PRN PRN Reason: HYPOGLYCEMIA Stop: 03/13/17 23:14 Insulin Human Lispro (Humalog) 0 units SQ TIDAC RADHA PRN Reason: Protocol Stop: 03/14/17 07:31 Last Admin: 09/13/16 08:11 Dose: 2 units Insulin Human Lispro (Humalog) 0 units SQ HS RADHA PRN Reason: Protocol Stop: 03/14/17 21:01 Last Admin: 09/12/16 21:40 Dose: Not Given Losartan Potassium (Cozaar) 100 mg PO HS RADHA PRN Reason: Protocol Stop: 03/14/17 21:01 Last Admin: 09/12/16 21:41 Dose: 100 mg Multivitamins/Calcium (Thera M Plus) 1 tab PO DAILY RADHA Stop: 03/14/17 09:01 Last Admin: 09/13/16 08:11 Dose: 1 tab Naloxone HCl (Narcan) 0.4 mg IVP Q2MIN PRN PRN Reason: Opioid Reversal Stop: 03/13/17 23:04 Nitroglycerin (Nitroglycerin) 0.4 mg SL Q5M PRN PRN Reason: Chest Pain Stop: 03/14/17 05:58 Simvastatin (Zocor) 40 mg PO HS RADHA Stop: 03/14/17 21:01 Last Admin: 09/12/16 21:41 Dose: 40 mg Vitamin D (Vitamin D) 1,000 unit PO DAILY RADHA Stop: 03/14/17 09:01 Last Admin: 09/13/16 08:11 Dose: 1,000 unit - Imaging and Cardiology Echo: pending Cardiac cath: report reviewed - EKG Interpretation EKG results cardiology: other (Sinus rhythm in the 60s on telemetry) - VTE Reasons for not Prescribing Prophylaxis: Not indicated-Anticoagulated or INR therapeutic Consult Discharge Plan - Plan [facility]errals: [facility]Primary Care Provider[facility] -
[2016-09-13] MEDS ORDERED: amLODIPine 5 MG TABLET PO SCH (09:00)
--- NOTE | 2016-09-13 10:27 | Discharge Summary ---
Date of Encounter: 09/13/16 Time of Encounter: 10:26 - Discharge Diagnosis (1) NSTEMI (non-ST elevated myocardial infarction) Priority: Primary Status: Acute (2) Hypomagnesemia Priority: Secondary Status: Acute (3) Hypokalemia Priority: Secondary Status: Acute (4) Hypertension Priority: Secondary Status: Chronic Qualifiers: Hypertension type: essential hypertension Qualified Code(s): I10 - Essential (primary) hypertension (5) Diabetes mellitus Priority: Secondary Status: Chronic Qualifiers: Diabetes mellitus type: type 2 Diabetes mellitus complication status: with circulatory complication Diabetes mellitus complication detail: with other circulatory complications Diabetes mellitus chcf insulin use: without chcf use Qualified Code(s): E11.59 - Type 2 diabetes mellitus with other circulatory complications (6) DVT prophylaxis Priority: Secondary Status: Acute - Discharge Medications Prescriptions: Atorvastatin [Lipitor] 80 mg PO HS #30 tablet Clopidogrel [Plavix] 75 mg PO DAILY #30 tablet Home Medications: Aspirin Enteric Coated [Aspirin EC] 81 mg PO HS 09/11/16 [History] Carvedilol [Coreg] 6.25 mg PO BID 09/11/16 [History] Chlorthalidone 12.5 mg PO DAILY 09/11/16 [History] Cholecalciferol (Vitamin D3) [Vitamin D3] 400 unit PO BID 09/11/16 [History] Cyanocobalamin (Vitamin B-12) [Vitamin B12] 1,000 mcg PO DAILY 09/11/16 [History ] Flaxseed/Omega3,6,9/Fatty Acid [Flax Seed Oil 1,300 mg Softgel] 1 tab PO DAILY 09/11/16 [History] Isosorbide MONOnitrate (24 HR) [Imdur] 45 mg PO HS 09/11/16 [History] Metformin HCl [Glucophage] 1,000 mg PO BID 09/11/16 [History] Multivit-Min/FA/Lycopen/Lutein [Adults 50+ Multivitamin Tablet] 1 tab PO BID [History] NIFEdipine [Adalat cc] 120 mg PO DAILY 09/11/16 [History] Nitroglycerin [Nitrostat] 0.4 mg SL Q5M PRN 09/11/16 [History] Losartan Potassium [Cozaar] 100 mg PO DAILY 09/12/16 [History] Magnesium Oxide [Magnesium] 400 mg PO DAILY 09/12/16 [History] Propylene Glycol/Peg 400 [Systane 0.3-0.4% Eye Drops] 15 drop OP QID PRN [History] glipiZIDE [Glipizide] 10 mg PO HS 09/12/16 [History] Atorvastatin [Lipitor] 80 mg PO HS #30 tablet 09/13/16 [Rx] Clopidogrel [Plavix] 75 mg PO DAILY #30 tablet 09/13/16 [Rx] Allergies/Adverse Reactions: Allergies No Known Allergies Allergy (Verified 09/11/16 21:08) Procedures/tests Complete & Pending: Procedures Performed prior 72 hours Category Date Time Status CL Cardiac Catheterization [CL] Routine Show Operations Supervisor 09/12/16 09:33 Completed ECG 12 lead ECG [ECG] Routine Y 09/12/16 01:18 Completed ECG 12 lead ECG [ECG] Stat Y 09/11/16 23:03 Ordered EKG [ECG 12 lead ECG] [ECG] Stat Y 09/12/16 05:57 Completed EV echocardiogram Routine Y 09/12/16 09:34 Completed Date of admission: 09/11/16 21:00 Primary care physician: [facility] Consults: 09/12/16 00:48 Consult to Cardiology [CONS] Routine Comment: Consulting Provider: Lisandra York Reason for Consult: NSTEMI Call Completed: No 09/12/16 09:33 Consult to Cardiac Rehabilitation-Phase1 [CONS] Routine Comment: Reason for Consult: NSTEMI Call Completed: No Discharging clinician: Bacilio Carmona Anticipated date of discharge: 09/13/16 - Patient Status Disposition: Home, Self-Care Condition: Good Functional capacity at discharge: uses cane/walker (fall precaution) Overall status at discharge: patient is progressing back to baseline - Discharge Instructions Follow Up With: [facility],PCP [Primary Care Provider] - (F/u in a week for hospital d/c f/u and DM II. 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 Chung is a 76 year old male with hx of dm II and CAD who presented to the ER with cc of chest pain, in the ER he was found to have elevated troponin, he was admitted for NSTEMI, heparin drip was started and nitro drip was started for active chest pain, cardio consulted, pt was taken to the [facility] yesterday, which showed severe one vessel CAD, AMANDA was placed in mid LAD, cardio has adjusted her medications, pt is stable to be d/c today with close f/u with his PCP in [facility] and cadiologist. - Time Spent with Patient Total time spent providing and/or coordinating discharge services: - Constitutional Vitals: Temp Pulse Resp BP Pulse Ox 97.5 F L 56 16 156/66 98 09/13/16 06:59 09/13/16 09:48 09/13/16 06:59 09/13/16 09:48 09/13/16 06:59 General appearance: Present: cooperative, A&O X 3, pleasant, no acute distress, answers questions appropriately - Head Head exam: Present: atraumatic, normocephalic - Eye Eye exam: Present: PERRL, conjuntiva pink, sclera anicteric Pupils: Present: PERRL - Neck Neck exam general surgery: Present: supple, trachea midline. Absent: lymphadenopathy - Respiratory Respiratory exam: Present: CTAB. Absent: accessory muscle use, rales, rhonchi, wheezes - Cardiovascular Cardiovascular exam: Present: RRR, +S1, +S2. Absent: diastolic murmur, gallop, rubs, systolic murmur - GI/Abdominal GI/Abdominal exam: Present: normal bowel sounds, soft, no peritoneal signs. Absent: distended, tenderness - Extremities Exam Extremities exam: Present: warm, radial pulses palpable and symetrical. Absent : calf tenderness, cyanotic, pedal edema - Neurological Exam Neurological exam: Present: CN II-XII intact, oriented X3, no focal deficits. Absent: pronater drift, facial droop, speech deficit - Skin Skin exam: Present: dry, intact - VTE Reasons for not Prescribing Prophylaxis: Not indicated-Anticoagulated or INR therapeutic
[2016-09-13] MEDS ORDERED: Magnesium Oxide 400 MG TABLET PO SCH (10:30)
[2016-09-13 12:14] VITALS: BP 148/78
[2016-09-15] MEDS ORDERED: NIFEdipine XL (24 HR) 60 MG TAB.ER.24 PO SCH (09:00)
== END 2016-09-13 14:05 | disposition home or self-care (01) | DRG 247 ==
LOC: 2NENU 21:00 → SUATTDRO 21:00
PROVIDERS: ADMIT Nurse Practitioner Acute Care; ATTEND Internal Medicine

== ENCOUNTER 2017-05-20 10:11 | Inpatient (IN) ==
--- NOTE | 2017-05-20 10:20 | Emergency Department Note ---
Disposition Clinical Impression: Elevated troponin, Chest pain Disposition: Admitted As Inpatient Condition: Good Forms: ED Satisfaction Letter Time of Disposition: 11:57 Chest Pain HPI - General Chief Complaint: ED Chest Pain Stated Complaint: ed chest pain Time Seen by Provider: 05/20/17 10:16 Source: patient Mode of arrival: ambulatory Limitations: no limitations Vital Signs Reviewed: Yes Nursing Notes Reviewed: Yes - History of Present Illness HPI Narrative: 76-year-old male presents emergency room for chest pain. Patient was sent over from the [place] clinic. Patient states he started getting pain in his chest substernal region around 2:30 in the morning. He has a history of 2 stents. Last stent was placed in the summer of 2016. He states he had some pain in his left arm. He felt sweaty. No shortness of breath. States he has been having problems with diarrhea and intermittent constipation since last week as well. He also admits he was diagnosed with a urinary tract infection last and is on an antibiotic but cannot tell me the name of it. He denies any vomiting. He rates his pain as 0 out of 10. He did receive 1 nitroglycerin and aspirin at the [facility] clinic. The nitroglycerin relieved his chest pain. His troponin was elevated at the CT clinic at 0.11 - Related Data Home Medications Medication Instructions Recorded Confirmed Aspirin Enteric Coated [Aspirin EC] 81 mg PO DAILY 09/11/16 05/20/17 Chlorthalidone 12.5 mg PO DAILY 09/11/16 05/20/17 Isosorbide MONOnitrate (24 HR) 45 mg PO DAILY 09/11/16 05/20/17 [Imdur] Metformin HCl [Glucophage] 1,000 mg PO BID 09/11/16 05/20/17 Multivit-Min/FA/Lycopen/Lutein 1 tab PO BID 09/11/16 05/20/17 [Adults 50+ Multivitamin Tablet] NIFEdipine [Adalat cc] 120 mg PO DAILY 09/11/16 05/20/17 Nitroglycerin [Nitrostat] 0.4 mg SL Q5M PRN 09/11/16 05/20/17 Losartan Potassium [Cozaar] 100 mg PO DAILY 09/12/16 05/20/17 glipiZIDE [Glipizide] 10 mg PO HS 09/12/16 05/20/17 Tamsulosin [Flomax] 0.4 mg PO HS 12/11/16 05/20/17 Clomipramine HCl 100 mg PO HS 02/06/17 05/20/17 Magnesium Oxide [Magnesium] 400 mg PO HS 02/06/17 05/20/17 Metoprolol Succinate [Toprol Xl] 25 mg PO DAILY 02/06/17 05/20/17 Ranolazine [Ranexa] 500 mg PO BID 02/06/17 05/20/17 Acetaminophen [Non-Aspirin] 650 mg PO Q6H PRN 05/20/17 05/20/17 Amoxicillin/Clavulanate [Augmentin] 875 mg PO BID 05/20/17 05/20/17 Docusate Sodium [Dok] 200 mg PO DAILY PRN 05/20/17 05/20/17 Lactobacillus Acidophilus 1 mg PO BID 05/20/17 05/20/17 [Acidophilus Probiotic] Nitrofurantoin Monohyd/M-Cryst 100 mg PO BID 05/20/17 05/20/17 [Macrobid 100 mg Capsule] Ranitidine HCl [Acid Network/Telecom Engineer] 150 mg PO BID 05/20/17 05/20/17 Sennosides [Senokot] 8.6 mg PO BID PRN 05/20/17 05/20/17 Previous Rx's Medication Instructions Recorded Atorvastatin [Lipitor] 80 mg PO HS #30 tablet 09/13/16 Clopidogrel [Plavix] 75 mg PO DAILY #30 tablet 09/13/16 Allergies Allergy/AdvReac Type Severity Reaction Status Date / Time No Known Allergies Allergy Verified 09/11/16 21:08 All systems ED: reviewed and negative except as stated. Constitutional: Reports: chills Eyes: Reports: as per HPI ENT ED: Reports: as per HPI Cardiovascular: Reports: as per HPI, chest pain. Denies: orthopnea, edema, syncope, paroxysmal nocturnal dyspnea Respiratory: Reports: as per HPI Gastrointestinal: Reports: diarrhea, constipation Genitourinary: Reports: as per HPI Musculoskeletal: Reports: as per HPI Integumentary: Reports: as per HPI Neurological: Reports: as per HPI Endocrine: Reports: as per HPI Hematological/Lymphatic: Reports: as per HPI Allergic/Immunologic: Reports: as per HPI Chest Pain PMH - Past Medical History Medical history: Reports: diabetes, myocardial infarction - Social History Smoking Status: Smoker, status unknown Alcohol use: Reports: rarely Drug use: Reports: none Physical Exam - General Limitations: no limitations General appearance: alert - Head Head exam: atraumatic, normocephalic - Eye Eye exam: Present: normal appearance - ENT ENT exam: normal exam - Neck Neck exam: Present: normal inspection - Chest Chest inspection: Present: normal inspection - Respiratory Respiratory exam: Present: normal lung sounds bilaterally. Absent: respiratory distress - Cardiovascular Cardiovascular exam: Present: regular rate, normal rhythm - Abdominal Exam Abdominal exam: Present: soft, Non-Tender, normal bowel sounds. Absent: tenderness - Extremities Exam Extremities exam: Present: normal inspection - Expanded Lower Extremity Exam Hip/Pelvis exam: Present: normal inspection - Neurological Exam Neurological exam: Present: alert, oriented X3 - Psychiatric Psychiatric exam: Present: normal affect, normal mood - Skin Skin exam: Present: warm, dry, intact Course Vital Signs Temperature 99.3 F 05/20/17 10:13 Pulse Rate 74 05/20/17 10:13 Respiratory Rate 18 05/20/17 10:13 Blood Pressure 121/59 05/20/17 10:13 O2 Sat by Pulse Oximetry 96 05/20/17 10:13 Temperature 99.3 F 05/20/17 10:13 Pulse Rate 74 05/20/17 10:13 Respiratory Rate 18 05/20/17 10:13 Blood Pressure 121/59 05/20/17 10:13 O2 Sat by Pulse Oximetry 98 05/20/17 10:22 Oxygen Delivery Oxygen Delivery Room Air Chest Pain - MDM Narrative Medical decision making narrative: Patient's troponin did come back elevated here as well. EKG was unremarkable. I spoke with the hospitalist. We will admit the patient and start him on heparin drip for ACS protocol. - Medical Records Medical records reviewed: Yes I reviewed the patient's medical records. - Lab Data Lab results reviewed: Yes I reviewed the patient's lab results. Result diagrams: 05/20/17 10:45 05/20/17 10:45 Lab Results 05/20/17 05/20/17 05/20/17 Range/Units 10:45 10:45 10:45 WBC 13.1 H (4.3-11.1) K/mcL RBC 3.58 L (4.19-5.50) M/mcL Hgb 11.3 L (12.9-16.9) g/dL Hct 32.5 L (37.5-50.1) % MCV 90.8 (83.0-100.0) fL MCH 31.6 (28.0-33.3) pg MCHC 34.8 (31.6-35.5) g/dL RDW 13.0 (11.5-14.5) % Plt Count 290 (140-400) K/mcL MPV 9.6 (9.4-12.4) fL Immature Gran % 0.6 (0-4) % Seg Neutrophils % 78.0 % Lymphocytes % 11.5 % Monocytes % 9.1 % Eosinophils % 0.5 % Basophils % 0.3 % Neutrophils # 10.2 H (1.6-8.9) K/mcL Lymphocytes # 1.5 (0.6-4.6) K/mcL Monocytes # 1.2 (0.0-1.3) K/mcL Eosinophils # 0.1 (0.0-0.6) K/mcL Basophils # 0.0 (0.0-0.2) K/mcL Sodium 133 L (136-145) mEq/L Potassium 3.5 (3.5-5.1) mEq/L Chloride 99 (98-107) mEq/L Carbon Dioxide 25 (23-29) mEq/L BUN 14 (8-23) mg/dL Creatinine 0.72 (0.70-1.30) mg/dL Est GFR ( Amer) > 60 (> 60) Est GFR (Non-Af Amer) > 60 (> 60) BUN/Creatinine Ratio 19 (6-26) Glucose 172 H (70-105) mg/dL Calculated Osmolality 281 (280-300) Calcium 8.9 (8.6-10.3) mg/dL Troponin I 0.11 H* (< 0.04) ng/mL - Radiology Data Radiology results reviewed: Yes I reviewed the patient's radiology results. - EKG Data EKG attestation: Yes I reviewed and interpreted this EKG. EKG results narrative: EKG shows a rate of 74. No sinus rhythm. Left axis deviation. [place] interval 142. QRS 114. QTc 474. No acute findings on the EKG is compared to previous. Critical Care Time Critical Care Time: Yes Total Critical Care Time: 30 Attestation: Total critical care time 30 minutes spent medical management of ACS protocol with elevated troponin.
[2017-05-20 11:04] LABS: Basophils % 0.3 %; Eosinophils # 0.1 K/mcL (0.0-0.6); Eosinophils % 0.5 %; Hematocrit 32.5 % (37.5-50.1); Hemoglobin 11.3 g/dL (12.9-16.9); Immature Granulocytes % 0.6 % (0-4); Lymphocytes # 1.5 K/mcL (0.6-4.6); Lymphocytes % 11.5 %; Mean Corpuscular HGB Conc 34.8 g/dL (31.6-35.5); Mean Corpuscular Hemoglobin 31.6 pg (28.0-33.3); Mean Corpuscular Volume 90.8 fL (83.0-100.0); Mean Platelet Volume 9.6 fL (9.4-12.4); Monocytes # 1.2 K/mcL (0.0-1.3); Monocytes % 9.1 %; Neutrophils # 10.2 K/mcL (1.6-8.9); Platelet Count 290 K/mcL (140-400); Red Blood Count 3.58 M/mcL (4.19-5.50)
[2017-05-20 11:10] LABS: Calcium 8.9 mg/dL (8.6-10.3); Carbon Dioxide 25 mEq/L (23-29); Chloride 99 mEq/L (98-107); Potassium 3.5 mEq/L (3.5-5.1); Sodium 133 mEq/L (136-145)
[2017-05-20 11:15] LABS: BUN/Creatinine Ratio 19 (6-26); Blood Urea Nitrogen 14 mg/dL (8-23); Glucose 172 mg/dL (70-105); Osmolality,Calculated 281 (280-300); eGFR For African Americans > 60 (> 60); eGFR For Non-African Americans > 60 (> 60)
[2017-05-20] MEDS ORDERED: Heparin 25,000 UNIT/500 ML D5W 25,000 UNIT/500 ML BAG IVC SCH (12:00)
[2017-05-20 13:24] LABS: INR 1.3
[2017-05-20 13:27] LABS: Activated Partial Thrombo Time 24.4 Seconds (26.0-36.0)
--- NOTE | 2017-05-20 13:28 | Electrocardiograph Report ---
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
[2017-05-20] MEDS ORDERED: Naloxone 0.4 MG/ML INJ IVP PRN (14:00)
[2017-05-20] MEDS ORDERED: *HR* HYDROcodone/Acet 5/325 mg TABLET PO PRN (14:00)
[2017-05-20] MEDS ORDERED: Nitroglycerin 0.4 MG TAB.SUBL SL PRN (14:11)
[2017-05-20] MEDS ORDERED: Acetaminophen 325 MG TABLET PO PRN (14:11)
[2017-05-20] MEDS ORDERED: Ondansetron 4 MG/2 ML VIAL IVP PRN (14:14)
[2017-05-20] MEDS ORDERED: Aspirin Enteric Coated 325 MG Tablet PO SCH (14:30)
--- NOTE | 2017-05-20 14:44 | Internal Med History&Physical ---
<Ancelmo Tsang - Last Filed: 05/20/17 19:22> Date of Encounter: 05/20/17 Time of Encounter: 13:00 Assessment and Plan (1) Chest pain Current visit: Yes Status: Acute Acute chest pain that began at 2 a.m. this morning in left chest w/radiation to left shoulder blade and presents as intermittent cramping which builds in pressure. Also reports dizziness Pt. has hx of previous MIs and had stent placed at [facility] in 2004 and stent placed at [place] in 2017. Sx at rest. No alleviating or aggravating factors. Initial troponin 0.11. Heparin drip started in ED. 325 aspirin. 80 mg Lipitor now. Nitro PRN. Continuous telemetry. Echocardiogram. Pt. reports nitroglycerin helped relieve his symptoms. Dizziness w/standing so orthostatic BPs and VS ordered. Cardiology consult ordered and discussed with Dr. Costa and I appreciate the consult. Pt. discussed w/Dr. York who agrees w/plan of care. Pt. is high risk for cardiac event and further morbidity based on current symptoms of chest pain at rest, history of previous MIs requiring stent placement; risk factors of CAD, HLD, HTN , diabetes. Inpatient. Qualifiers: Chest pain type: other chest pain Qualified Code(s): R07.89 - Other chest pain; R07.8 - Other chest pain (2) Elevated troponin Current visit: Yes Status: Acute Acutely elevated troponin of 0.11 on admission. Previous troponin elevation in was 0.99 when last stent placed. Heparin drip started in ED. Trend x2. Cardiology consulted. (3) UTI (urinary tract infection) Current visit: Yes Status: Acute Acute UTI dx on at Urgent Care. Pt. reports he was placed on by mouth amoxicillin and Bactrim and took dosing through this morning. Patient reports urine is still dark with foul odor. U/A w/reflex micro and culture ordered. WBC 13.1 on admission. IVPB ceftriaxone 2,000 mg daily ordered for infection coverage. Will adjust based on U/A results. Qualifiers: Urinary tract infection type: site unspecified Hematuria presence: without hematuria Qualified Code(s): N39.0 - Urinary tract infection, site not specified (4) Diarrhea Current visit: Yes Status: Acute Acute and uncontrolled diarrhea for the past 2 days. Pt. placed on PO abx on for UTI dx. C. diff infection panel ordered. Monitor I&O. Qualifiers: Diarrhea type: unspecified type Qualified Code(s): R19.7 - Diarrhea, unspecified (5) Anemia Current visit: Yes Status: Chronic Hx of chronic anemia. Hgb 11.3 and Hct 32.5 which is slight drop from 08/2016. Pt. denies unusual bleeding. Monitor H/H in a.m. labs. Qualifiers: Anemia type: unspecified type Qualified Code(s): D64.9 - Anemia, unspecified (6) HLD (hyperlipidemia) Current visit: Yes Status: Chronic Hx of chronic HLD. Lipid panel in a.m. labs. Continue pts. Lipitor. Qualifiers: Hyperlipidemia type: pure hypercholesterolemia Qualified Code(s): E78.00 - Pure hypercholesterolemia, unspecified; E78.0 - Pure hypercholesterolemia (7) HTN (hypertension) Current visit: Yes Status: Chronic Hx of chronic HTN. Monitor pt. and VS. continue patient's metoprolol, chlorthalidone, Ranexa, nifedipine, Cozaar, and Imdur. Qualifiers: Hypertension type: essential hypertension Qualified Code(s): I10 - Essential (primary) hypertension (8) CAD (coronary artery disease) Current visit: Yes Status: Chronic Hx of chronic CAD with history of previous MIs and stent placement 2 in 1999 at [facility] in 2017 at [facility]. Continue patient's aspirin therapy, Imdur, Cozaar, metoprolol, chlorthalidone, Ranexa, felodipine, Plavix, Lipitor, and nitrofurantoin Qualifiers: Coronary Disease-Associated Artery/Lesion type: crow artery [place] vs. transplanted heart: crow heart Associated angina: without angina Qualified Code(s): I25.10 - Atherosclerotic heart disease of crow coronary artery without angina pectoris (9) Diabetes mellitus Current visit: Yes Status: Chronic Hx of diabetes controlled by oral anti-hyperglycemic medications. Will hold oral medications and administer low-dose correction insulin sliding scale with hypoglycemic protocol. BG checks before meals at bedtime. A1c in a.m. labs. Qualifiers: Diabetes mellitus type: type 2 Diabetes mellitus complication status: with circulatory complication Diabetes mellitus complication detail: with other circulatory complications Diabetes mellitus manager long term care insulin use: without senior care use Qualified Code(s): E11.59 - Type 2 diabetes mellitus with other circulatory complications (10) DVT prophylaxis Current visit: Yes Status: Acute Pt. placed on heparin drip d/t elevated troponin of 0.11. Monitor patient for signs of bleeding. Internal Medicine - H&P: HPI Chief complaint: Chest pain Admitted From: Emergency Dept Plans for Post Hospital Care: Home History of present illness: Mr. Chung is a 76 year old male with medical hx of diabetes controlled with oral anti-glycemic medications, previous myocardial infarction, CAD, GERD, HLD, HTN, and [facility] chief complaint of chest pain that began at 2 AM this morning and he describes as left-sided chest pain with radiation to left shoulder. Patient states pain came on without exertion and had no alleviating or relieving factors. Patient describes as intermittent cramping feeling that the pressure. Patient reports stents 2 with first in 2003 at [facility] and second in 2017 at [facility]. Patient reports being diaphoretic but denies shortness of breath, nausea, vomiting. Patient states he was diagnosed with UTI 4 days ago and placed on amoxicillin and Bactrim. Patient is on fifth day of antibiotics and reports uncontrollable diarrhea every hour for the past 2 days. Patient reports dizziness with standing, diarrhea, and chest pain but denies fever, chills, nausea, vomiting, shortness of breath, cough, changes in vision, headache, palpitations, abdominal pain, weakness, pre-syncope, or syncope. Past Med Surg Social Fam HX - Past Medical History Source: patient, old records reviewed, obtained from family Medical history: coronary artery disease, diabetes, GERD, hyperlipidemia, hypertension, myocardial infarction - Social History Smoking Status: Smoker, status unknown Smokeless Tobacco Status: No Alcohol use: rarely Drug use: none Current living situation: Home, With Family Activity Level: Independent ambulation Recent Out of Country Travel Within the Last 8 Weeks: No Exposure or Possible Exposure to Illness During Travel: No - Family History Mother Adopted: No Race: Family Member Ethnicity: Non- Living Status: Still Living Hx Family Cardiac Disorders: Yes (CVA) Hx Family Respiratory Disorders: No Hx Family Cancer: No Hx Family GI Disorders: No Hx Family Endocrine Disorder: No Hx Family Neuromuscular Disorders: No Hx Family Neurologic Disorders: Yes (Dementia) Hx Family HEENT Disorders: No Hx Family Autoimmune Disorders: No Father Race: Family Member Ethnicity: Non- Living Status: Age at : 87 Cause of : CAD Hx Family Cardiac Disorders: Yes (CAD) Sister Race: Family Member Ethnicity: Non- Living Status: Still Living Hx Family Cardiac Disorders: Yes (CAD) Internal Medicine - H&P: Meds Aspirin Enteric Coated [Aspirin EC] 81 mg PO DAILY 09/11/16 [History] Chlorthalidone 12.5 mg PO DAILY 09/11/16 [History] Isosorbide MONOnitrate (24 HR) [Imdur] 45 mg PO DAILY 09/11/16 [History] Metformin HCl [Glucophage] 1,000 mg PO BID 09/11/16 [History] Multivit-Min/FA/Lycopen/Lutein [Adults 50+ Multivitamin Tablet] 1 tab PO BID [History] NIFEdipine [Adalat cc] 120 mg PO DAILY 09/11/16 [History] Nitroglycerin [Nitrostat] 0.4 mg SL Q5M PRN 09/11/16 [History] Losartan Potassium [Cozaar] 100 mg PO DAILY 09/12/16 [History] glipiZIDE [Glipizide] 10 mg PO HS 09/12/16 [History] Atorvastatin [Lipitor] 80 mg PO HS #30 tablet 09/13/16 [Rx] Clopidogrel [Plavix] 75 mg PO DAILY #30 tablet 09/13/16 [Rx] Tamsulosin [Flomax] 0.4 mg PO HS 12/11/16 [History] Clomipramine HCl 100 mg PO HS 02/06/17 [History] Magnesium Oxide [Magnesium] 400 mg PO HS 02/06/17 [History] Metoprolol Succinate [Toprol Xl] 25 mg PO DAILY 02/06/17 [History] Ranolazine [Ranexa] 500 mg PO BID 02/06/17 [History] Acetaminophen [Non-Aspirin] 650 mg PO Q6H PRN 05/20/17 [History] Amoxicillin/Clavulanate [Augmentin] 875 mg PO BID 05/20/17 [History] Docusate Sodium [Dok] 200 mg PO DAILY PRN 05/20/17 [History] Lactobacillus Acidophilus [Acidophilus Probiotic] 1 mg PO BID 05/20/17 [History] Nitrofurantoin Monohyd/M-Cryst [Macrobid 100 mg Capsule] 100 mg PO BID 05/20/17 [History] Ranitidine HCl [Acid Patient Admitting Clerk] 150 mg PO BID 05/20/17 [History] Sennosides [Senokot] 8.6 mg PO BID PRN 05/20/17 [History] 3 Allergy/AdvReac Type Severity Reaction Status Date / Time No Known Allergies Allergy Verified 09/11/16 21:08 All Systems PM: A 10-system review of systems was performed and is negative for pertinent findings except as documented above in the HPI. - Constitutional Constitutional: as per HPI, excessive sweating (With chest pain this morning ), no chills, no fever(s), no night sweats - EENT Eyes: no change in vision, no discharge, no pain, no photophobia Ears: no ear discharge, no ear pain, no tinnitus Nose, mouth and throat: no dysphagia, no nasal discharge, no neck pain, no sore throat - Breasts Breasts: as per HPI - Cardiovascular Cardiovascular ROS IM: as per HPI, chest pain, diaphoresis - Respiratory Respiratory: no cough, no dyspnea, no wheezing, no excessive phlegm production - Gastrointestinal Gastrointestinal: as per HPI, no abdominal pain, no diarrhea (Uncontrolled every hour for the past 2 days), no hematemesis, no hematochezia, no melena, no nausea, no vomiting - Genitourinary Genitourinary ROS male: as per HPI - Musculoskeletal Musculoskeletal ROS IM: no numbness, no tingling - Integumentary Integumentary IM: no rash, no unusual bruising - Neurological Neurological ROS: as per HPI, dizziness (w/standing), no confusion, no convulsions, no focal weakness, no numbness, no tingling, no tremor(s) - Psychiatric Psychiatric: as per HPI - Endocrine Endocrine IM: as per HPI - Hematologic/Lymphatic Hematologic/Lymphatic: no easy bruising - Allergic/Immunologic Allergic/Immunologic: as per HPI - Constitutional Vitals: Temp Pulse Resp BP Pulse Ox 99.3 F 62 14 119/58 98 05/20/17 10:13 05/20/17 13:59 05/20/17 13:59 05/20/17 13:59 05/20/17 12:30 General appearance: Present: cooperative, A&O X 3, pleasant, no acute distress, obese, answers questions appropriately - Head Head exam: Present: atraumatic, normocephalic - Eye Eye exam: Present: PERRL, conjuntiva pink, sclera anicteric Pupils: Present: PERRL - ENT ENT exam: Present: normal exam - Neck Neck exam general surgery: Present: normal inspection, supple, trachea midline. Absent: lymphadenopathy - Respiratory Respiratory exam: Present: CTAB. Absent: accessory muscle use, rales, rhonchi, wheezes - Cardiovascular Cardiovascular exam: Present: RRR, +S1, +S2. Absent: diastolic murmur, gallop, rubs, systolic murmur - GI/Abdominal GI/Abdominal exam: Present: normal bowel sounds, soft, no peritoneal signs. Absent: distended, tenderness - Rectal Rectal exam: Present: deferred - Additional comments: exam deferred. - Extremities Exam Extremities exam: Present: warm, radial pulses palpable and symmetrical. Absent : calf tenderness, cyanotic, pedal edema - Back Exam Back exam: Present: normal inspection - Neurological Exam Neurological exam: Present: CN II-XII intact, oriented X3, no focal deficits. Absent: pronater drift, facial droop, speech deficit - Psychiatric Psychiatric exam: Present: normal affect, normal mood - Skin Skin exam: Present: dry, intact Internal Med - H&P Results - Labs CBC & Chem 7: 05/20/17 10:45 05/20/17 10:45 - EKG Data EKG shows normal: sinus rhythm - EKG Data Prior EKG available for review: yes EKG comments: 05/20/17 14:49 EKG dated 05/20/17 08:49 shows sinus rhythm with premature atrial complexes and possible left atrial enlargement. EKG dated 05/20/17 shows sinus rhythm with occasional supraventricular premature complexes and moderate intraventricular conduction delay with prolonged QT interval. - Impressions Impressions Chest X-Ray 05/20/17 11:16 IMPRESSION: Prominence of the right pulmonary hilum by either represent normal underlying vascular structures or perhaps lymph node enlargement. The lungs are otherwise clear. D/ / Abrahan Reed MD / Abrahan Reed MD Interpreting Provider: Abrahan Reed MD <Michel York - Last Filed: 05/20/17 20:14> Date of Encounter: 05/20/17 Internal Medicine - H&P: HPI History of present illness: Mr. Chung is a 76 year old male All Systems PM: A 10-system review of systems was performed and is negative for pertinent findings except as documented above in the HPI. - Constitutional Vitals: Temp Pulse Resp BP Pulse Ox 99.3 F 66 18 117/65 92 05/20/17 19:49 05/20/17 19:49 05/20/17 19:49 05/20/17 14:55 05/20/17 19:49 Internal Med - H&P Results - Labs CBC & Chem 7: 05/20/17 10:45 05/20/17 10:45 - Attending Attestation I have personally performed a face to face evaluation on this patient. I have reviewed and agree with the care plan. History and Exam by me shows: patient presented to the hospital with chest pain. Troponin is 0.11. On exam he is in no acute distress. Heart is regular, lungs are clear. EKG shows nonspecifiST changes. mild QT prolongatio. assessment: non-ST elevation [place]. Plan : Aspirin, beta rae, nitates, heparin infusion, consult cardiology. Michel York MD
[2017-05-20] MEDS ORDERED: D5% in Water 1,000 ML IVC PRN (14:55)
[2017-05-20] MEDS ORDERED: Dextrose Gel 15 GM/37.5 ML TUBE PO PRN ×2 (14:55)
[2017-05-20] MEDS ORDERED: *HR* Dextrose 50 % in Water (Syg) 50 ML SYRINGE IVP PRN (14:55)
[2017-05-20] MEDS ORDERED: Aspirin Enteric Coated 325 MG Tablet PO ONE (15:07)
[2017-05-20] MEDS ORDERED: cefTRIAXone 2,000 MG in Water for inj. (sterile) 20 ML 20 ML IVP SCH (16:00)
[2017-05-20] MEDS: 0.9 % Sodium Chloride 1,000 ML IVC SCH (17:29)
[2017-05-20 18:37] LABS: Bilirubin,Urine Negative (Negative); Blood,Urine Negative (Negative); Clarity,Urine Clear (Clear); Color,Urine Dark Yellow (Yellow); Glucose,Urine (UA) 250 mg/dL (Normal); Ketones,Urine Negative (Negative); Leukocyte Esterase,Urine Negative (Negative); Nitrite,Urine Negative (Negative); PH,Urine 6.5 pH Units (5.0-8.0); Protein,Urine 30 mg/dL (Neg-Trace); Urobilinogen,Urine Normal (Normal)
[2017-05-20 18:39] LABS: Bacteria,Urine None Seen per hpf (None-Few); Hyaline Casts,Urine None Seen per lpf (None-Few); Squamous Epithelial Cell,Urine Moderate per lpf (None-Few)
[2017-05-20] MEDS: Insulin LISPRO 300 UNITS/3 ML VIAL SQ SCH (19:01)
[2017-05-20] MEDS ORDERED: Magnesium Oxide 400 MG TABLET PO SCH (21:00)
[2017-05-20] MEDS ORDERED: Insulin LISPRO 300 UNITS/3 ML VIAL SQ SCH (21:00)
[2017-05-20] MEDS: Lactobacillus 1 EACH CAP.SPRINK PO SCH (21:06)
[2017-05-20] MEDS: Ranolazine 500 MG TAB.ER.12H PO SCH (21:07)
[2017-05-20] MEDS: Multivit/Ca/Min/Fe/FA 1 TAB TABLET PO SCH (21:07)
[2017-05-20] MEDS: Famotidine 20 MG TABLET PO SCH (21:07)
[2017-05-20] MEDS ORDERED: *HR* Heparin 5,000 UNIT/ML VIAL IVP PRN ×2 (22:07)
[2017-05-20] MEDS ORDERED: *HR* Heparin 5,000 UNIT/ML VIAL IVP ONE (22:07)
[2017-05-20] MEDS: Heparin 25,000 UNIT/500 ML D5W 25,000 UNIT/500 ML BAG IVC SCH ×2 (22:22→22:34)
[2017-05-20 22:44] LABS: Hematocrit 29.7 % (37.5-50.1); Hemoglobin 10.3 g/dL (12.9-16.9); Mean Corpuscular HGB Conc 34.7 g/dL (31.6-35.5); Mean Corpuscular Hemoglobin 31.5 pg (28.0-33.3); Mean Corpuscular Volume 90.8 fL (83.0-100.0); Mean Platelet Volume 9.6 fL (9.4-12.4); Platelet Count 260 K/mcL (140-400); Red Blood Count 3.27 M/mcL (4.19-5.50)
[2017-05-20 22:49] LABS: INR 1.4
[2017-05-20 23:06] LABS: Activated Partial Thrombo Time 46.4 Seconds (26.0-36.0)
[2017-05-21] MEDS: 0.9 % Sodium Chloride 1,000 ML IVC SCH (05:00)
[2017-05-21 05:23] LABS: Basophils % 0.4 %; Eosinophils # 0.3 K/mcL (0.0-0.6); Eosinophils % 2.8 %; Hematocrit 29.4 % (37.5-50.1); Hemoglobin 10.2 g/dL (12.9-16.9); Immature Granulocytes % 0.7 % (0-4); Lymphocytes # 2.2 K/mcL (0.6-4.6); Lymphocytes % 21.9 %; Mean Corpuscular HGB Conc 34.7 g/dL (31.6-35.5); Mean Corpuscular Hemoglobin 31.5 pg (28.0-33.3); Mean Corpuscular Volume 90.7 fL (83.0-100.0); Mean Platelet Volume 9.6 fL (9.4-12.4); Monocytes % 10.2 %; Neutrophils # 6.6 K/mcL (1.6-8.9); Platelet Count 264 K/mcL (140-400); Red Blood Count 3.24 M/mcL (4.19-5.50)
[2017-05-21 05:26] LABS: Hemoglobin A1C 5.8 %
[2017-05-21 06:02] LABS: Alanine Aminotransferase 62 Units/L (7-52); Albumin 3.2 g/dL (3.5-5.7); Albumin/Globulin Ratio 1.3 (1.1-2.2); Alkaline Phosphatase 45 Units/L (34-104); Aspartate Amino Transferase 27 Units/L (13-39); BUN/Creatinine Ratio 18 (6-26); Bilirubin,Total 0.6 mg/dL (0.3-1.0); Blood Urea Nitrogen 13 mg/dL (8-23); Calcium 8.4 mg/dL (8.6-10.3); Carbon Dioxide 23 mEq/L (23-29); Chloride 102 mEq/L (98-107); Chol/HDL Ratio 4.1 (0-4.9); Cholesterol 65 mg/dL (< 200); Globulin 2.4 g/dL (2.4-3.5); Glucose 154 mg/dL (70-105); HDL Cholesterol 16 mg/dL (40-59); LDL Cholesterol,Calculated 36 mg/dL (0-99); Magnesium 1.5 mg/dL (1.6-2.6); Osmolality,Calculated 281 (280-300); Potassium 3.5 mEq/L (3.5-5.1); Sodium 134 mEq/L (136-145); Total Protein 5.6 g/dL (6.4-8.9); Triglycerides 64 mg/dL (< 150); eGFR For African Americans > 60 (> 60); eGFR For Non-African Americans > 60 (> 60)
[2017-05-21] MEDS ORDERED: Acetaminophen 325 MG TABLET PO PRN (07:52)
--- NOTE | 2017-05-21 08:27 | Internal Med Progress Note ---
Date of Encounter: 05/21/17 - Assessment and plan (1) Chest pain Current Visit: Yes Status: Acute Qualifiers: Chest pain type: other chest pain Qualified Code(s): R07.89 - Other chest pain; R07.8 - Other chest pain (2) Diarrhea Current Visit: Yes Status: Acute Qualifiers: Diarrhea type: unspecified type Qualified Code(s): R19.7 - Diarrhea, unspecified (3) Elevated troponin Current Visit: Yes Status: Acute (4) UTI (urinary tract infection) Current Visit: Yes Status: Acute Qualifiers: Urinary tract infection type: site unspecified Hematuria presence: without hematuria Qualified Code(s): N39.0 - Urinary tract infection, site not specified (5) Anemia Current Visit: Yes Status: Chronic Qualifiers: Anemia type: unspecified type Qualified Code(s): D64.9 - Anemia, unspecified (6) CAD (coronary artery disease) Current Visit: Yes Status: Chronic Qualifiers: Coronary Disease-Associated Artery/Lesion type: [place] artery [place] vs. transplanted heart: [place] heart Associated angina: without angina Qualified Code(s): I25.10 - Atherosclerotic heart disease of [place] coronary artery without angina pectoris (7) Diabetes mellitus Current Visit: Yes Status: Chronic Qualifiers: Diabetes mellitus type: type 2 Diabetes mellitus complication status: with circulatory complication Diabetes mellitus complication detail: with other circulatory complications Diabetes mellitus termite control servicer insulin use: without skilled nursing use Qualified Code(s): E11.59 - Type 2 diabetes mellitus with other circulatory complications (8) HTN (hypertension) Current Visit: Yes Status: Chronic Qualifiers: Hypertension type: essential hypertension Qualified Code(s): I10 - Essential (primary) hypertension (9) DVT prophylaxis Current Visit: Yes Status: Acute - Constitutional Vitals: Temp Pulse Resp BP Pulse Ox 99.5 F 68 16 150/72 99 05/21/17 07:00 05/21/17 07:00 05/21/17 07:00 05/21/17 07:00 05/21/17 07:00 General appearance: Present: cooperative, A&O X 3, pleasant, no acute distress, obese, answers questions appropriately Internal Medicine: Result - Labs CBC & Chem 7: 05/21/17 05:03 05/21/17 05:03 Labs: Short CBC 05/20/17 05/21/17 Range/Units 22:32 05:03 WBC 9.8 10.2 (4.3-11.1) K/mcL Hgb 10.3 L 10.2 L (12.9-16.9) g/dL Hct 29.7 L 29.4 L (37.5-50.1) % Plt Count 260 264 (140-400) K/mcL Neutrophils # 6.6 (1.6-8.9) K/mcL BMP 05/21/17 05:03 Sodium 134 L Potassium 3.5 Chloride 102 Carbon Dioxide 23 BUN 13 Creatinine 0.73 Glucose 154 H Calcium 8.4 L Cardiac Enzymes 05/20/17 Range/Units 22:32 Troponin I 0.11 H* (< 0.04) ng/mL Liver Function 05/21/17 Range/Units 05:03 Total Bilirubin 0.6 (0.3-1.0) mg/dL AST 27 (13-39) Units/L ALT 62 H (7-52) Units/L Alkaline Phosphatase 45 (34-104) Units/L Albumin 3.2 L (3.5-5.7) g/dL - ABG Interpretation ABG results: PT/INR, D-dimer PT 15.0 Seconds (9.4-12.1) H 05/20/17 22:32 Consult Discharge Plan - Plan [facility]Primary Care Provider[facility] -
[2017-05-21] MEDS: Lactobacillus 1 EACH CAP.SPRINK PO SCH (08:31)
[2017-05-21] MEDS: Multivit/Ca/Min/Fe/FA 1 TAB TABLET PO SCH (08:32)
[2017-05-21] MEDS: Famotidine 20 MG TABLET PO SCH (08:32)
[2017-05-21] MEDS: Ranolazine 500 MG TAB.ER.12H PO SCH (08:32)
[2017-05-21] MEDS: Insulin LISPRO 300 UNITS/3 ML VIAL SQ SCH ×2 (08:33→12:25)
[2017-05-21] MEDS ORDERED: Aspirin Enteric Coated 81 MG Tablet PO SCH (09:00)
[2017-05-21] MEDS ORDERED: NIFEdipine XL (24 HR) 60 MG TAB.ER.24 PO SCH (09:00)
[2017-05-21] MEDS ORDERED: Isosorbide MONOnitrate (24 HR) 30 MG TAB.ER.24H PO SCH (09:00)
--- NOTE | 2017-05-21 09:45 | Cardiology Consult Note ---
Date of Encounter: 05/21/17 Time of Encounter: 09:42 Assessment and Plan (1) Elevated troponin Current Visit: Yes Status: Acute Mild troponin elevation--0.11, 0.12, 0.11. Flat and adynamic in setting of recently diagnosed UTI and reported BP of 208/86 at home. Suspect demand ischemia, nondiagnostic for ACS. One episode of chest pain relieved with nitro without recurrence. No ischemic EKG changes. Echo resulted--EF preserved 60%, no wall motion abnormalities. [facility] 08/2016 AMANDA to mLAD, residual small vessel disease. Will further discuss with Dr. Costa to see if ischemic evaluation is warranted during stay, but anticipate continued medical management. On heparin gtt. Continue ASA, Plavix, Statin, BB, nitrates. Increase Imdur to 60mg daily, increase Ranexa to 1000mg BID. (2) CAD (coronary artery disease) Current Visit: Yes Status: Chronic Hx of PCI x 2. Most recent, AMANDA to mLAD 08/2015. Residual small vessel disease. Continue ASA, Plavix, Statin, BB, nitrates, Ranexa. Qualifiers: Coronary Disease-Associated Artery/Lesion type: [place] artery [place] vs. transplanted heart: [place] heart Associated angina: without angina Qualified Code(s): I25.10 - Atherosclerotic heart disease of [place] coronary artery without angina pectoris (3) Chest pain Current Visit: Yes Status: Acute Single episode of chest pain relieved with nitro without recurrence. As above, flat and adynamic mildly elevated troponins in setting of recent UTI and accelerated HTN. Echo EF preserved, normal wall motion. [facility] 08/2016 AMANDA mLAD, residual small vessel disease. Increase Imdur to 60mg daily. Increase Ranexa to 1000mg BID. Qualifiers: Chest pain type: other chest pain Qualified Code(s): R07.89 - Other chest pain; R07.8 - Other chest pain Discussion w patient/family: The assessment and plan as outlined above was discussed with the patient and/or family members who expressed understanding and agreement. All questions were answered. Thank you for involving us in the care of your patient. Please call with any questions. I will discuss all the above with Dr. Costa and make changes as necessary. History of Present Illness Consult date: 05/21/17 Consult reason: Elevated troponin, chest pain Chief complaint: chest pain History of present illness: Mr. Chung is a 76 year old male is a 76 year old male with PMH of DMII, CAD with previous myocardial infarction and PCI x 2, GERD, HLD, HTN, and lesion on the [facility] chief complaint of chest pain that began at 2 AM yesterday morning and he describes as left-sided chest pain/ pressure. He took one nitro with relief of pain, no recurrence. Pt reports taking his blood pressure at home when chest pain began and reports BP was 208/ 86. Patient states he was diagnosed with UTI 4 days ago and placed on antibiotics at urgent care. Patient reports frequent diarrhea for the past 2 days. Troponin 0.11, 0.12, 0.11. Most recent LHC 08/2016 at [facility] with AMANDA to mLAD with residual small vessel disease. Echo has resulted. EF preserved, normal wall motion. Prior CV testing: TTE 05/20/17: LVEF 60%. Mild left ventricular diastolic dysfunction. Normal right ventricular structure and function. Mild aortic regurgitation. No pulmonary hypertension. TTE 09/12/16: LVEF 60%, hypokinesis of basal-mid inferior wall and basal-mid inferoseptal wall. No significant valvular dysfunction. LHC 09/12/16: Severe 1 vessel CAD, EF 60%. Successful PTCA/AMANDA to mLAD. Residual small vessel disease. Past Med Surg Social Fam HX - Past Medical History Medical history: coronary artery disease, diabetes, GERD, hyperlipidemia, hypertension, myocardial infarction - Social History Smoking Status: Smoker, status unknown Smokeless Tobacco Status: No Alcohol use: rarely Drug use: none - Family History Mother Adopted: No Race: Family Member Ethnicity: Non- Living Status: Still Living Hx Family Cardiac Disorders: Yes (CVA) Hx Family Respiratory Disorders: No Hx Family Cancer: No Hx Family GI Disorders: No Hx Family Endocrine Disorder: No Hx Family Neuromuscular Disorders: No Hx Family Neurologic Disorders: Yes (Dementia) Hx Family HEENT Disorders: No Hx Family Autoimmune Disorders: No Father Race: Family Member Ethnicity: Non- Living Status: Age at : 87 Cause of : CAD Hx Family Cardiac Disorders: Yes (CAD) Sister Race: Family Member Ethnicity: Non- Living Status: Still Living Hx Family Cardiac Disorders: Yes (CAD) Medications and Allergies Aspirin Enteric Coated [Aspirin EC] 81 mg PO DAILY 09/11/16 [History] Chlorthalidone 12.5 mg PO DAILY 09/11/16 [History] Isosorbide MONOnitrate (24 HR) [Imdur] 45 mg PO DAILY 09/11/16 [History] Metformin HCl [Glucophage] 1,000 mg PO BID 09/11/16 [History] Multivit-Min/FA/Lycopen/Lutein [Adults 50+ Multivitamin Tablet] 1 tab PO BID [History] NIFEdipine [Adalat cc] 120 mg PO DAILY 09/11/16 [History] Nitroglycerin [Nitrostat] 0.4 mg SL Q5M PRN 09/11/16 [History] Losartan Potassium [Cozaar] 100 mg PO DAILY 09/12/16 [History] glipiZIDE [Glipizide] 10 mg PO HS 09/12/16 [History] Atorvastatin [Lipitor] 80 mg PO HS #30 tablet 09/13/16 [Rx] Clopidogrel [Plavix] 75 mg PO DAILY #30 tablet 09/13/16 [Rx] Tamsulosin [Flomax] 0.4 mg PO HS 12/11/16 [History] Clomipramine HCl 100 mg PO HS 02/06/17 [History] Magnesium Oxide [Magnesium] 400 mg PO HS 02/06/17 [History] Metoprolol Succinate [Toprol Xl] 25 mg PO DAILY 02/06/17 [History] Ranolazine [Ranexa] 500 mg PO BID 02/06/17 [History] Acetaminophen [Non-Aspirin] 650 mg PO Q6H PRN 05/20/17 [History] Amoxicillin/Clavulanate [Augmentin] 875 mg PO BID 05/20/17 [History] Docusate Sodium [Dok] 200 mg PO DAILY PRN 05/20/17 [History] Lactobacillus Acidophilus [Acidophilus Probiotic] 1 mg PO BID 05/20/17 [History] Nitrofurantoin Monohyd/M-Cryst [Macrobid 100 mg Capsule] 100 mg PO BID 05/20/17 [History] Ranitidine HCl [Acid Building Associate] 150 mg PO BID 05/20/17 [History] Sennosides [Senokot] 8.6 mg PO BID PRN 05/20/17 [History] 3 Allergy/AdvReac Type Severity Reaction Status Date / Time No Known Allergies Allergy Verified 09/11/16 21:08 All Systems Review: A 10-system review of systems was performed and is negative for pertinent findings except as documented above in the HPI. - Cardiovascular Cardiovascular: as per HPI, chest pain at rest - Gastrointestinal Gastrointestinal: diarrhea Physical Examination Vital Signs, Last 4 Hours Temp Pulse Resp BP Pulse Ox 05/21/17 07:00 99.5 F 68 16 150/72 99 Vital Signs Temp Pulse Resp BP Pulse Ox 05/21/17 07:00 99.5 F 68 16 150/72 99 05/21/17 05:06 98.4 F 60 18 152/70 95 05/20/17 23:38 98.8 F 57 18 138/67 97 05/20/17 19:49 99.3 F 66 18 147/69 92 05/20/17 14:55 98.0 F 62 16 117/65 98 05/20/17 13:59 62 14 119/58 05/20/17 12:30 64 18 121/59 98 05/20/17 10:22 98 05/20/17 10:13 99.3 F 74 18 121/59 96 Intake and Output 05/20/17 05/21/17 05/21/17 23:59 07:59 15:59 Intake Total 166 / 166 1182 / 1182 480 / 480 Balance 166 / 166 1182 / 1182 480 / 480 Intake: IV Fluids 166 / 166 1182 / 1182 0.9 % Sodium Chloride 1,000 ML 1000 / 1000 @ 100 mls/hr IVC .Q10H RADHA Rx#: [id number] Heparin 25,000 UNIT/500 ML D5W 166 / 166 182 / 182 25,000 unit In 500 ml @ 11.2 UNIT/KG/HR 20.016 mls/hr IVC . Q24H RADHA Rx#:[id number] Oral 480 / 480 Other: Meal Breakfast Percent of Meal Consumed 100% Stool Size Large Stool Consistency liquid Stool Color Brown Weight 94.858 kg Blood Glucose* 179 175 Patient Weight 05/21/17 23:59 Weight 94.858 kg General: Conversant, No Apparent Distress HEENT: Atraumatic, Normocephaly, Mucus Membranes Moist Neck: No JVD, Normal carotid pulses Cardiac: Reg Rate and Rhythm, Normal S1 and S2, No Murmur Lungs: Normal Breath Sounds, No Wheeze, Rales, Rhonchi Neuro: Alert and responsive, No focal deficits noted Abdomen: Soft, Non-Tender Skin: No rashes noted on visualized skin Musculoskeletal: No Chest Wall Tenderness Extremities: No Clubbing, No Cyanosis, Other (mild BLE, L >R) Results 05/21/17 05:03 05/21/17 05:03 Lab Results 05/20/17 05/20/17 05/20/17 20:24 22:32 22:32 WBC 9.8 Hgb 10.3 L Hct 29.7 L Plt Count 260 INR APTT 30.0 Sodium Potassium Chloride Carbon Dioxide BUN Creatinine Glucose Calcium Magnesium Total Bilirubin AST ALT Alkaline Phosphatase Troponin I 0.11 H* 05/20/17 05/21/17 05/21/17 22:32 05:03 05:03 WBC 10.2 Hgb 10.2 L Hct 29.4 L Plt Count 264 INR 1.4 APTT 46.4 H D Sodium 134 L Potassium 3.5 Chloride 102 Carbon Dioxide 23 BUN 13 Creatinine 0.73 Glucose 154 H Calcium 8.4 L Magnesium 1.5 L Total Bilirubin 0.6 AST 27 ALT 62 H Alkaline Phosphatase 45 Troponin I 05/21/17 05:03 WBC Hgb Hct Plt Count INR APTT 52.3 H Sodium Potassium Chloride Carbon Dioxide BUN Creatinine Glucose Calcium Magnesium Total Bilirubin AST ALT Alkaline Phosphatase Troponin I Short CBC 05/21/17 05/20/17 05/20/17 Range/Units 05:03 22:32 10:45 WBC 10.2 9.8 13.1 H (4.3-11.1) K/mcL Hgb 10.2 L 10.3 L 11.3 L (12.9-16.9) g/dL Hct 29.4 L 29.7 L 32.5 L (37.5-50.1) % Plt Count 264 260 290 (140-400) K/mcL Neutrophils # 6.6 10.2 H (1.6-8.9) K/mcL BMP 05/21/17 05/20/17 Range/Units 05:03 10:45 Sodium 134 L 133 L (136-145) mEq/L Potassium 3.5 3.5 (3.5-5.1) mEq/L Chloride 102 99 (98-107) mEq/L Carbon Dioxide 23 25 (23-29) mEq/L BUN 13 14 (8-23) mg/dL Creatinine 0.73 0.72 (0.70-1.30) mg/dL Glucose 154 H 172 H (70-105) mg/dL Calcium 8.4 L 8.9 (8.6-10.3) mg/dL Cardiac Enzymes 05/20/17 05/20/17 05/20/17 Range/Units 22:32 17:30 10:45 Troponin I 0.11 H* 0.12 H* 0.11 H* (< 0.04) ng/mL Liver Function 05/21/17 Range/Units 05:03 Total Bilirubin 0.6 (0.3-1.0) mg/dL AST 27 (13-39) Units/L ALT 62 H (7-52) Units/L Alkaline Phosphatase 45 (34-104) Units/L Albumin 3.2 L (3.5-5.7) g/dL Urine 05/20/17 Range/Units 16:08 Urine Color Dark Yellow (Yellow) Urine Clarity Clear (Clear) Urine pH 6.5 (5.0-8.0) pH Units Ur Specific [place] 1.020 (1.010-1.025) Urine Protein 30 H (Neg-Trace) mg/dL Urine Glucose (UA) 250 H (Normal) mg/dL Impressions Chest X-Ray 05/20/17 11:16 IMPRESSION: Prominence of the right pulmonary hilum by either represent normal underlying vascular structures or perhaps lymph node enlargement. The lungs are otherwise clear. D/ / Abrahan Reed MD / Abrahan Reed MD Interpreting Provider: Abrahan Reed MD Echocardiogram 05/20/17 14:10 Impressions: LVEF 60%. Mild left ventricular diastolic dysfunction. Normal right ventricular structure and function. Mild aortic regurgitation. No pulmonary hypertension. Left Ventricular Wall Motion: Rest Echo Findings All wall segments showed normal motion. Findings: Study Quality * Technically sub-optimal due to poor echocardiographic windows. ECG Findings * Normal sinus rhythm. Left Ventricle * LVEF 60%. * Normal LV chamber size, wall thickness and function. * Mild left ventricular diastolic dysfunction. Right Ventricle * Normal right ventricular structure and function. Left Atrium * Normal left atrial size. Right Atrium * Normal right atrial size. Aortic Valve * Aortic valve not well visualized. * No aortic stenosis. * Mild aortic regurgitation. Mitral Valve * Normal mitral valve structure. * No mitral stenosis. * Trace mitral regurgitation. Tricuspid Valve * Tricuspid valve not well visualized. * No tricuspid regurgitation. * Estimated RA pressure is 3 mmHg. Pulmonic Valve * Pulmonic valve is not well visualized. * No pulmonic stenosis. * No pulmonic regurgitation. Pulmonary Artery * Pulmonary artery not well visualized. Aorta * Normally sized aortic root. Pericardium * There is no pericardial effusion present. Interatrial Septum * No evidence of PFO by color Doppler. IVC * Normal IVC dimensions and inspiratory collapse. Active Medications Acetaminophen (Tylenol) 650 mg PO Q6H PRN PRN Reason: Mild Pain Stop: 11/19/17 14:12 Hydrocodone Bitart/Acetaminophen ([place] 5-325 Mg) 1 tab PO Q6HR PRN PRN Reason: Moderate Pain Stop: 11/19/17 14:01 Aspirin (Aspirin Ec) 81 mg PO DAILY [facility] Stop: 11/20/17 09:01 Last Admin: 05/21/17 08:32 Dose: 81 mg Atorvastatin Calcium (Lipitor) 80 mg PO HS [facility] Stop: 11/20/17 21:01 Chlorthalidone (Chlorthalidone) 12.5 mg PO DAILY [facility] Stop: 11/20/17 09:01 Last Admin: 05/21/17 08:32 Dose: 12.5 mg Clomipramine HCl (Anafranil) 100 mg PO HS [facility] Stop: 11/19/17 21:01 Last Admin: 05/20/17 21:06 Dose: 100 mg Clopidogrel Bisulfate (Plavix) 75 mg PO DAILY [facility] Stop: 11/20/17 09:01 Last Admin: 05/21/17 08:31 Dose: 75 mg Dextrose/Water (Dextrose 50% (Syg)) 25 ml IVP AD PRN PRN Reason: Hypoglycemia Stop: 11/19/17 14:56 Famotidine (Pepcid) 20 mg PO BID [facility] Stop: 11/19/17 21:01 Last Admin: 05/21/17 08:32 Dose: 20 mg Glucagon (Glucagen) 1 mg IM ONCE PRN PRN Reason: Hypoglycemia Stop: 11/19/17 14:56 Glucose (Gluctose) 15 gm PO ONCE PRN PRN Reason: Hypoglycemia Stop: 11/19/17 14:56 Glucose (Gluctose) 30 gm PO ONCE PRN PRN Reason: Hypoglycemia Stop: 11/19/17 14:56 Heparin Sodium (Porcine) (Heparin) 4,000 unit IVP Q6HR PRN PRN Reason: SEE COMMENTS Stop: 11/19/17 22:08 Heparin Sodium (Porcine) (Heparin) 2,000 unit IVP Q6H PRN PRN Reason: SEE COMMENTS Stop: 11/19/17 22:08 Last Admin: 05/21/17 06:20 Dose: 2,000 unit Dextrose (Dextrose 5%) 1,000 mls @ 100 mls/hr IVC .Q10H PRN PRN Reason: HYPOGLYCEMIA Stop: 11/19/17 14:56 Ceftriaxone Sodium 2,000 mg/ (Sterile Water) 20 mls @ 300 mls/hr IVP Q24H RADHA Stop: 11/19/17 16:01 Last Admin: 05/20/17 17:28 Dose: 300 mls/hr Sodium Chloride (0.9 % Sodium Chloride) 1,000 mls @ 100 mls/hr IVC .Q10H RADHA Stop: 05/21/17 12:14 Last Admin: 05/21/17 05:00 Dose: 100 mls/hr Heparin Sodium/Dextrose (Heparin 25,000 Unit/500 Ml D5w) 25,000 unit in 500 mls @ 20.016 mls/hr IVC .Q24H RADHA; 11.2 UNIT/KG/HR PRN Reason: Protocol Stop: 11/19/17 22:16 Last Titration: 05/21/17 06:20 Dose: 17.34 unit/kg/hr, 31 mls/hr Insulin Human Lispro (Humalog) 0 units SQ TIDAC RADHA PRN Reason: Protocol Stop: 11/19/17 16:31 Last Admin: 05/21/17 08:33 Dose: 2 units Insulin Human Lispro (Humalog) 0 units SQ HS RADHA PRN Reason: Protocol Stop: 11/19/17 21:01 Last Admin: 05/20/17 21:07 Dose: Not Given Isosorbide Mononitrate (Imdur) 45 mg PO DAILY [facility] Stop: 11/20/17 09:01 Last Admin: 05/21/17 08:32 Dose: 45 mg Lactobacillus Acidophilus/Rhamnosus (Culturelle) 1 each PO BID [facility] Stop: 11/19/17 21:01 Last Admin: 05/21/17 08:31 Dose: 1 each Losartan Potassium (Cozaar) 100 mg PO DAILY [facility] Stop: 11/20/17 09:01 Last Admin: 05/21/17 08:31 Dose: 100 mg Magnesium Oxide (Mag-Ox) 400 mg PO HS [facility] PRN Reason: Protocol Stop: 11/19/17 21:01 Last Admin: 05/20/17 21:07 Dose: 400 mg Multivitamins/Calcium (Thera M Plus) 1 tab PO BID [facility] Stop: 11/19/17 21:01 Last Admin: 05/21/17 08:32 Dose: 1 tab Naloxone HCl (Narcan) 0.4 mg IVP Q2MIN PRN PRN Reason: SEE COMMENTS Stop: 11/19/17 14:01 Nifedipine (Procardia Xl) 120 mg PO DAILY [facility] Stop: 11/20/17 09:01 Last Admin: 05/21/17 08:31 Dose: 120 mg Nitroglycerin (Nitroglycerin) 0.4 mg SL Q5M PRN PRN Reason: Chest Pain Stop: 11/19/17 14:12 Ondansetron HCl (Zofran) 4 mg IVP Q6HR PRN; Protocol PRN Reason: Nausea And Vomiting Stop: 11/19/17 14:15 Ranolazine (Ranexa) 500 mg PO BID [facility] Stop: 11/19/17 21:01 Last Admin: 18 08:32 Dose: 500 mg Tamsulosin HCl (Flomax) 0.4 mg PO HS [facility] PRN Reason: Protocol Stop: 11/19/17 21:01 Last Admin: 05/20/17 21:07 Dose: 0.4 mg - Imaging and Cardiology Echo: report reviewed Cardiac cath: report reviewed - EKG Interpretation EKG results cardiology: personally reviewed (SR, no change from prior.), other ( 12 hr tele AVG HR 63, no significant pauses or arrhythmias) Consult Discharge Plan - Plan [facility]errals: [facility] [Primary Care Provider] -
[2017-05-21] MEDS ORDERED: Ranolazine 500 MG TAB.ER.12H PO ONE (10:11)
[2017-05-21 11:22] VITALS: BP 128/66
--- NOTE | 2017-05-21 14:09 | Discharge Summary ---
Date of Encounter: 05/21/17 Time of Encounter: 14:05 - Discharge Diagnosis (1) Chest pain Priority: Primary Status: Acute Qualifiers: Chest pain type: other chest pain Qualified Code(s): R07.89 - Other chest pain; R07.8 - Other chest pain (2) Diarrhea Priority: Secondary Status: Acute Qualifiers: Diarrhea type: functional diarrhea Qualified Code(s): K59.1 - Functional diarrhea (3) Elevated troponin Priority: Secondary Status: Acute (4) UTI (urinary tract infection) Priority: Secondary Status: Acute Qualifiers: Urinary tract infection type: acute cystitis Hematuria presence: without hematuria Qualified Code(s): N30.00 - Acute cystitis without hematuria (5) Anemia Priority: Secondary Status: Chronic Qualifiers: Anemia type: unspecified type Qualified Code(s): D64.9 - Anemia, unspecified (6) CAD (coronary artery disease) Priority: Secondary Status: Chronic Qualifiers: Coronary Disease-Associated Artery/Lesion type: [place] artery [place] vs. transplanted heart: [place] heart Associated angina: without angina Qualified Code(s): I25.10 - Atherosclerotic heart disease of [place] coronary artery without angina pectoris (7) Diabetes mellitus Priority: Secondary Status: Chronic Qualifiers: Diabetes mellitus type: type 2 Diabetes mellitus complication status: with circulatory complication Diabetes mellitus complication detail: with other circulatory complications Diabetes mellitus jail insulin use: without long term care pharmacist use Qualified Code(s): E11.59 - Type 2 diabetes mellitus with other circulatory complications (8) HTN (hypertension) Priority: Secondary Status: Chronic Qualifiers: Hypertension type: essential hypertension Qualified Code(s): I10 - Essential (primary) hypertension (9) DVT prophylaxis Priority: Secondary Status: Acute Hospital course: Mr. Chung is a 76 year old male patient with history of diabetes mellitus, coronary artery disease, prior RI and PCI, gastroesophageal reflux disease, hypertension was hospitalized [facility]. He took nitroglycerin at home with no relief of his pain. His pressure was also elevated at 208/86. He had been treated for acute urinary tract infection with Augmentin and Macrobid as outpatient. He was hospitalized here for further evaluation due to his prior history. Cardiology was consulted and patient's troponins were trended. Patient's troponins went up slightly to a peak of 0.12. Cardiology evaluated the patient and have recommended no further workup at this time. Patient did receive intravenous antibiotics for his UTI with improvement in his symptoms. He had complained of dysuria on presentation but this has since resolved. He is not doing better and wishes to go home. He will be discharged home today on levofloxacin to complete 7 more days of treatment. His medication regimen is also being adjusted per cardiology recommendations. Patient will now take Imdur 60 mg daily and Ranexa 1000 mg twice daily. Patient did complain of diarrhea which likely is due to antibiotic use. His stool for C. difficile was negative. He is advised to continue taking lactobacillus to help with these symptoms. Discharge discussed with: patient, family - Time Spent with Patient Total time spent providing and/or coordinating discharge services: Greater than 30 minutes (35 min) - Discharge Medications Prescriptions: Isosorbide MONOnitrate (24 HR) [Imdur] 60 mg PO DAILY #30 tab.er.24h levoFLOXacin [Levaquin] 500 mg PO DAILY #7 tablet Ranolazine [Ranexa] 1,000 mg PO BID #120 tab.er.12h Home Medications: Aspirin Enteric Coated [Aspirin EC] 81 mg PO DAILY 09/11/16 [History] Chlorthalidone 12.5 mg PO DAILY 09/11/16 [History] Metformin HCl [Glucophage] 1,000 mg PO BID 09/11/16 [History] Multivit-Min/FA/Lycopen/Lutein [Adults 50+ Multivitamin Tablet] 1 tab PO BID [History] NIFEdipine [Adalat cc] 120 mg PO DAILY 09/11/16 [History] Nitroglycerin [Nitrostat] 0.4 mg SL Q5M PRN 09/11/16 [History] Losartan Potassium [Cozaar] 100 mg PO DAILY 09/12/16 [History] glipiZIDE [Glipizide] 10 mg PO HS 09/12/16 [History] Atorvastatin [Lipitor] 80 mg PO HS #30 tablet 09/13/16 [Rx] Clopidogrel [Plavix] 75 mg PO DAILY #30 tablet 09/13/16 [Rx] Tamsulosin [Flomax] 0.4 mg PO HS 12/11/16 [History] Clomipramine HCl 100 mg PO HS 02/06/17 [History] Magnesium Oxide [Magnesium] 400 mg PO HS 02/06/17 [History] Metoprolol Succinate [Toprol Xl] 25 mg PO DAILY 02/06/17 [History] Acetaminophen [Non-Aspirin] 650 mg PO Q6H PRN 05/20/17 [History] Docusate Sodium [Dok] 200 mg PO DAILY PRN 05/20/17 [History] Lactobacillus Acidophilus [Acidophilus Probiotic] 1 mg PO BID 05/20/17 [History] Ranitidine HCl [Acid Pump Tester] 150 mg PO BID 05/20/17 [History] Isosorbide MONOnitrate (24 HR) [Imdur] 60 mg PO DAILY #30 tab.er.24h 05/21/17 [ Rx] Ranolazine [Ranexa] 1,000 mg PO BID #120 tab.er.12h 05/21/17 [Rx] levoFLOXacin [Levaquin] 500 mg PO DAILY #7 tablet 05/21/17 [Rx] Allergies/Adverse Reactions: 3 Allergy/AdvReac Type Severity Reaction Status Date / Time No Known Allergies Allergy Verified 09/11/16 21:08 Date of admission: 05/20/17 18:23 [facility] care physician: [facility] Consults: 05/20/17 14:05 Consult to Secret Code Expert [CONS] Routine Reason for SW Consult: Please assess patient for possible home needs for post -discharge planning. 05/20/17 14:06 Consult to Occupational Therapy [CONS] Routine Comment: Evaluate, develop and implement POC Reason for Consult: Patient reports that he is unsteady on his feet when ambulating occasionally. Please assess patient for ambulation strength, stability, safety, and possible home assistive needs for post-discharge planning. 05/20/17 14:08 Consult to Physical Therapy [CONS] Routine Comment: Evaluate, develop and implement POC Reason for Consult: Patient reports that he is unsteady on his feet when ambulating occasionally. Please assess patient for ambulation strength, stability, safety, and possible home assistive needs for post-discharge planning. 05/20/17 14:18 Consult to Cardiology [CONS] Routine Comment: Consulting Provider: Cardiology [place] Reason for Consult: Patient presents with left-sided chest pain w/radiation to left shoulder blade and described as intermittent pressure that builds in intensity. Sx began at 2 a.m. Hx of previous RI w/stents x2 ([place] 2003, [place] 2016). 2 nitro helped sx. Sx came on at rest. Initial trop 0.11. Heparin drip started in ED. Pt. also recently dx w/UTI. Risk factors: HLD, HTN, CAD, DM. Aspirin not given in ED, so 325 ordered stat. Lipitor 80 mg now. Nitro PRN. Call Completed: Yes Discharging clinician: Héctor Wolf Anticipated date of discharge: 05/21/17 - Constitutional Vitals: Temp Pulse Resp BP Pulse Ox 99.5 F 56 16 128/66 97 05/21/17 07:00 05/21/17 11:00 05/21/17 11:00 05/21/17 11:00 05/21/17 11:00 General appearance: Present: cooperative, A&O X 3, pleasant, no acute distress, obese, answers questions appropriately - Respiratory Respiratory exam: Present: CTAB. Absent: accessory muscle use, rales, rhonchi, wheezes - Cardiovascular Cardiovascular exam: Present: RRR, +S1, +S2. Absent: diastolic murmur, gallop, rubs, systolic murmur - GI/Abdominal GI/Abdominal exam: Present: normal bowel sounds, soft, no peritoneal signs. Absent: distended, tenderness - Patient Status Disposition: Home, Self-Care Condition: Good Overall status at discharge: patient is progressing back to baseline - Discharge Instructions Instructions: Chest Pain (DC), Urinary Tract Infection in Men (DC), Chronic Hypertension (DC) Follow Up With: [facility] [Primary Care Provider] - (in 1-2 weeks) - Diet and Activity Activity: increase activity as tolerated Diet: low fat, low cholesterol, low salt diet
[2017-05-21] MEDS ORDERED: CefTRIAXone 1,000 MG VIAL IM ONE ×2 (15:07→15:12)
[2017-05-21] MEDS ORDERED: Lidocaine -MPF 1% 2 ML VIAL INFILT ONE (15:14)
[2017-05-21] MEDS ORDERED: *HR* Heparin 5,000 UNIT/ML VIAL SQ SCH (18:00)
[2017-05-21] MEDS ORDERED: Ranolazine 500 MG TAB.ER.12H PO SCH (21:00)
[2017-05-22] MEDS ORDERED: Isosorbide MONOnitrate (24 HR) 60 MG TAB.ER.24H PO SCH (09:00)
== END 2017-05-21 15:45 | disposition home or self-care (01) | DRG 690 ==
LOC: 2ANU 10:11 → EMEROO 10:11 → 2ANU 14:49 → SUATTDRO 18:23
PROVIDERS: ADMIT Internal Medicine; ATTEND Internal Medicine